=== PATIENT | male | born 1960 | race Caucasian/White ===

== ENCOUNTER 2018-09-02 00:40 | Emergency (ER) | payer SELFPAY ==
[2018-09-02] MEDS ORDERED: NORMAL SALINE 1000 ML 1,000 ML IV ONE (01:23)
[2018-09-02] MEDS ORDERED: ONDANSETRON HCL INJ/PF 4 MG/2 ML SDV IV ONE (01:23)
[2018-09-02] MEDS ORDERED: MORPHINE SULFATE 10 MG/ML INJ IV ONE (01:23)
--- NOTE | 2018-09-02 01:31 | ER Document Report ---
ED General - General Chief Complaint: Abdominal Pain Stated Complaint: VOMITTING, ADBOMINAL PAIN Time Seen by Provider: 09/02/18 01:18 Primary Care Provider: ELKIN ALEXANDER MD [ACTIVE STAFF] - Follow up as needed Notes: Patient is a 58-year-old male presents with complaint of lower abdominal pain with some vomiting. There is been vomiting for last to 3 days and then today start having abdominal pain. No diarrhea. No blood in stool. No fevers. Has had some subjective chills at home. He does previous history of diverticulitis but has not had any issues last few years. In 2014 he had a left inguinal hernia repair with mesh placement performed here. No other complaints at this time. TRAVEL OUTSIDE OF THE [place] IN LAST 30 DAYS: No - Related Data Allergies/Adverse Reactions: No Known Allergies Allergy (Verified 02/12/14 11:26) Past Medical History - Social History Smoking Status: Never Smoker Frequency of alcohol use: None Drug Abuse: None Family History: None - Past Medical History Cardiac Medical History: Denies: Hx Coronary Artery Disease, Hx Heart Attack, Hx Hypertension Pulmonary Medical History: Denies: Hx Asthma, Hx Bronchitis, Hx COPD, Hx Pneumonia Neurological Medical History: Denies: Hx Cerebrovascular Accident, Hx Seizures GI Medical History: Reports: Hx Diverticulitis Musculoskeletal Medical History: Denies Hx Arthritis Past Surgical History: Reports: Hx Inguinal Hernia - Immunizations Hx Diphtheria, Pertussis, Tetanus Vaccination: No Review of Systems - Review of Systems Notes: My Normal Review Basic REVIEW OF SYSTEMS: CONSTITUTIONAL : Chills CARDIOVASCULAR: Denies chest pain. RESPIRATORY: Denies cough, cold, or chest congestion. Denies shortness of breath, difficulty breathing, or wheezing. GASTROINTESTINAL: Lower abdominal pain. Vomiting. GENITOURINARY: Denies difficulty urinating, painful urination, burning, frequency, or blood in urine. MUSCULOSKELETAL: Denies neck or back pain or joint pain or swelling. SKIN: Denies rash or skin lesions. NEUROLOGICAL: Denies altered mental status or loss of consciousness. Denies headache. Denies weakness or paralysis or loss of use of either side. Denies problems with gait or speech. Denies sensory or motor loss. ALL OTHER SYSTEMS REVIEWED AND NEGATIVE. Physical Exam - Vital signs Vitals: Temp Pulse Resp BP Pulse Ox 98.1 F 93 20 140/78 H 97 09/02/18 00:50 09/02/18 00:50 09/02/18 00:50 09/02/18 00:50 09/02/18 00:50 - Notes Notes: General Appearance: Well nourished, alert, cooperative, no acute distress, moderate obvious discomfort. Vitals: reviewed, See vital signs table. Head: no swelling or tenderness to the head Eyes: PERRL, EOMI, Conjuctiva clear Mouth: No decreasd moisture Lungs: No wheezing, No rales, No rhonci, No accessory muscle use, good air exchange bilaterally. Heart: Normal rate, Regular rythm, No murmur, no rub Abdomen: Normal BS, soft, No rigidity, moderate lower abdominal tenderness to palpation., No guarding, no rebound, no abdominal masses, no organomegaly. No bulging or evidence of recurrent hernia in the inguinal area. Extremities: strength 5/5 in all extremities, good pulses in all extremities, no swelling or tenderness in the extremities, no edema. Skin: warm, dry, appropriate color, no rash Neuro: speech clear, oriented x 3, normal affect, responds appropriately to questions. Course - Re-evaluation Re-evalutation: 09/02/18 02:57 On reevaluation patient is feeling improved regards to his pain and nausea. Waiting for patient to finish drinking oral contrast so that we can obtain CT scan. 09/02/18 05:12 CT scan shows colitis. I will place the patient on Augmentin due to his p revious history of recurrent diverticulitis as well as previous history of bowel abscess. I we will have him follow back up with his GI physician at [facility]. I encouraged him return to ER immediately if he has fevers, recurrent vomiting, worsening abdominal pain, blood in stool, or if he feels that he is worsening in any way. Patient agrees with plan and will be discharged home. Dictation of this chart was performed using voice recognition software; therefore, there may be some unintended grammatical errors. - Vital Signs Vital signs: Temp Pulse Resp BP Pulse Ox 98.1 F 93 20 140/78 H 97 09/02/18 00:50 09/02/18 00:50 09/02/18 00:50 09/02/18 00:50 09/02/18 00:50 - Laboratory Result Diagrams: 09/02/18 01:34 09/02/18 02:19 Laboratory results interpreted by me: 09/02/18 09/02/18 09/02/18 01:34 02:19 04:43 WBC 13.3 H RBC 4.30 L Seg Neutrophils % 89.9 H Lymphocytes % 6.1 L Absolute Neutrophils 11.9 H Glucose 118 H AST 13 L Urine Ketones 80 H Discharge - Discharge Clinical Impression: Colitis Condition: Good Disposition: HOME, SELF-CARE Additional Instructions: Your CT scan shows colitis. Based on your previous history of recurrent diverticulitis as well as bowel abscess I fell it is appropriate to place you on antibiotics at this time. We will start you on Augmentin. Please take it as prescribed. Please follow-up closely with your GI doctor in the next 3-4 days. Have a low threshold to return to the ER if you have fevers, blood in your stool, intractable vomiting, or worsening abdominal pain. Prescriptions: Amox Tr/Potassium Clavulanate [Augmentin 875-125 Tablet] 1 tab PO BID #14 tablet Ondansetron [Zofran Odt 4 mg Tablet] 1 tab PO Q4H PRN #15 tab.rapdis PRN Reason: For Nausea/Vomiting Forms: Return to Work
[2018-09-02 01:43] LABS: ABSOLUTE LYMPHOCYTES (AUTO) 0.8 10^3/uL (0.5-4.7); ABSOLUTE MONOCYTES (AUTO) 0.5 10^3/uL (0.1-1.4); ABSOLUTE NEUT (AUTO) 11.9 10^3/uL (1.7-8.2); BASOPHILS % (AUTO) 0.2 % (0-2); EOSINOPHILS % (AUTO) 0.2 % (0-6); HEMATOCRIT 39.8 % (37.9-51.0); HEMOGLOBIN 13.5 g/dL (13.5-17.0); LYMPHOCYTES % (AUTO) 6.1 % (13-45); MEAN CORPUSCULAR HEMOGLOBIN 31.4 pg (27.0-33.4); MEAN CORPUSCULAR VOLUME 93 fl (80-97); MONOCYTES % (AUTO) 3.6 % (3-13); PLATELET COUNT 404 10^3/uL (150-450); RED CELL DISTRIBUTION WIDTH 13.4 % (11.5-14.0); SEGMENTED NEUTROPHILS % (AUTO) 89.9 % (42-78); TOTAL CELLS COUNTED % (AUTO) 100 %; WHITE BLOOD COUNT 13.3 10^3/uL (4.0-10.5)
[2018-09-02 02:44] LABS: ALANINE AMINOTRANSFERASE 27 U/L (21-72); ALKALINE PHOSPHATASE 89 U/L (38-126); ANION GAP 9 (5-19); ASPARTATE AMINO TRANSFERASE 13 U/L (17-59); BILIRUBIN,DIRECT 0.3 mg/dL (0.0-0.4); BILIRUBIN,TOTAL 0.3 mg/dL (0.2-1.3); BLOOD UREA NITROGEN 17 mg/dL (7-20); CALCIUM 8.9 mg/dL (8.4-10.2); CARBON DIOXIDE 24 mmol/L (22-30); CHLORIDE 106 mmol/L (98-107); GLUCOSE 118 mg/dL (75-110); POTASSIUM 4.7 mmol/L (3.6-5.0); SODIUM 139.2 mmol/L (137-145); TOTAL PROTEIN 6.7 g/dL (6.3-8.2)
[2018-09-02 05:02] LABS: APPEARANCE,URINE CLEAR; BILIRUBIN,URINE NEGATIVE (NEGATIVE); COLOR,URINE YELLOW; GLUCOSE, URINE NEGATIVE (NEGATIVE); KETONES,URINE 80 mg/dL (NEGATIVE); LEUKOCYTE ESTERASE,URINE NEGATIVE (NEGATIVE); NITRITE,URINE NEGATIVE (NEGATIVE); PROTEIN,URINE NEGATIVE (NEGATIVE); URINE SPECIFIC GRAVITY 1.044; UROBILINOGEN,URINE NEGATIVE mg/dL (<2.0)
--- NOTE | 2018-09-02 05:02 | RADIOLOGY REPORT (SQ) ---
EXAM DESCRIPTION: CT ABDOMEN PELVIS WITH IV CONTRAST COMPLETED DATE/TME: 09/02/2018 00:00 CLINICAL HISTORY: 58 years, Male, lower abdominal pain COMPARISON: 02/12/2014 TECHNIQUE: Axial CT images of the abdomen and pelvis were obtained of the the administration of IV contrast. Sagittal and coronal reformats were performed. DLP 475 Images stored on PACS. All CT scanners at this facility use dose modulation, iterative reconstruction, and/or weight based dosing when appropriate to reduce radiation dose to as low as reasonably achievable (ALARA). [facility]: Dose Right [facility]: CareDose [facility]: Dose Right [facility]: Teradose 4D [facility]: Seedcamp LIMITATIONS: None. FINDINGS: Lung bases are clear. The liver, gallbladder, pancreas, spleen, and adrenal glands are unremarkable. There is no evidence of hydronephrosis or hydroureter bilaterally. Noted is a left parapelvic cyst. There is no intraperitoneal free air or fluid. There is no lymphadenopathy. There are atherosclerotic calcifications of the abdominal aorta. There is no intraperitoneal free air or fluid. There is no lymphadenopathy. The stomach and small bowel appear unremarkable. The appendix is not uniquely identified, however there are no pericecal inflammatory changes. There is a moderate amount of stool within the colon. There is circumferential thickening of the sigmoid colon. Urinary bladder and prostate gland are unremarkable. There are no lytic or blastic bone lesions. IMPRESSION: Circumferential thickening of the sigmoid colon, likely due to colitis. TECHNICAL DOCUMENTATION: Quality ID # [id number]: Final reports with documentation of one or more dose reduction techniques (e.g., Automated exposure control, adjustment of the mA and/or kV according to patient size, use of iterative reconstruction technique) copyright 2011 [employer]- All Rights Reserved
[2018-09-02] MEDS ORDERED: AMOXICILLIN TR/POT CLAVULANATE 500-125 MG TAB PO ONE (05:10)
[2018-09-02] MEDS ORDERED: ONDANSETRON ODT 4 MG TAB (6 TAB/ER DISP) PO PRN (05:12)
[2018-09-02 05:31] VITALS: BP 128/64
== END 2018-09-02 05:31 | disposition home or self-care (01) ==
LOC: ER 00:40
DX: K52.9 Noninfective gastroenteritis and colitis, unspecified (principal); R10.30 Lower abdominal pain, unspecified; R11.10 Vomiting, unspecified; R68.83 Chills (without fever)
CPT/HCPCS: 99284; 96361; 96374; 96375; 36415; 85025; 80053; 81001; 74177; J2270; J2405; J7030

== ENCOUNTER 2018-09-14 13:08 | Emergency (ER) | payer SELFPAY ==
[2018-09-14] MEDS ORDERED: MORPHINE SULFATE 10 MG/ML INJ IV ONE (14:14)
[2018-09-14] MEDS ORDERED: NORMAL SALINE 1000 ML 1,000 ML IV ONE (14:15)
--- NOTE | 2018-09-14 14:16 | ER Document Report ---
ED Medical Screen (RME) - General Chief Complaint: Abdominal Pain Stated Complaint: ABDOMINAL PAIN Time Seen by Provider: 09/14/18 14:11 TRAVEL OUTSIDE OF THE [place] IN LAST 30 DAYS: No - HPI Notes: 09/14/18 14:15 Patient is a 58-year-old male with a history of colitis and diverticulosis/diverticulitis who presents complaining of generalized abdominal pain that started in his upper now moved to his lower bilaterally. Patient states that he was here 2 weeks ago with similar symptoms and was diagnosed with colitis. He was placed on Augmentin at that time. Patient states that his follow-up appointment is not until Monday with his family doctor. Patient states that the pain has flared up again starting a few days ago. Denies drug allergies. He has had decreased p.o. intake. He is urinating normally. Patient states that his bowel movements are more "mucousy." Denies MAN, fever, neck pain, URI, CP, SOB, dysuria, back pain, or rash. I have treated and performed a rapid initial assessment of this patient. A comprehensive ED assessment and evaluation of the patient, analysis of test results and completion of medical decision making process will be conducted by additional ED providers. PHYSICAL EXAMINATION: GENERAL: appears frail, no acute distress. LUNGS: Breath sounds clear to auscultation bilaterally and equal. No wheezes rales or rhonchi. HEART: Regular rate and rhythm without murmurs, rubs, gallops. ABDOMEN: Soft, nondistended abdomen. No guarding, no rebound. Normal bowel sounds present. No CVA tenderness bilaterally. + generalized tenderness (cannot elicit thorough abd exam w/o bed, however). - Related Data Allergies/Adverse Reactions: No Known Allergies Allergy (Verified 09/14/18 13:09) Past Medical History - Past Medical History Cardiac Medical History: Denies: Hx Coronary Artery Disease, Hx Heart Attack, Hx Hypertension Pulmonary Medical History: Denies: Hx Asthma, Hx Bronchitis, Hx COPD, Hx Pneumonia Neurological Medical History: Denies: Hx Cerebrovascular Accident, Hx Seizures Renal/ Medical History: Denies: Hx Peritoneal Dialysis GI Medical History: Reports: Hx Diverticulitis Musculoskeltal Medical History: Denies Hx Arthritis Past Surgical History: Reports: Hx Inguinal Hernia - Immunizations Hx Diphtheria, Pertussis, Tetanus Vaccination: No Physical Exam - Vital signs Vitals: Temp Pulse Resp BP Pulse Ox 98.1 F 63 16 130/67 H 97 09/14/18 13:25 09/14/18 13:25 09/14/18 13:25 09/14/18 13:25 09/14/18 13:25 Course - Vital Signs Vital signs: Temp Pulse Resp BP Pulse Ox 98.1 F 63 16 130/67 H 97 09/14/18 13:25 09/14/18 13:25 09/14/18 13:25 09/14/18 13:25 09/14/18 13:25
--- NOTE | 2018-09-14 14:59 | RADIOLOGY REPORT (SQ) ---
EXAM DESCRIPTION: KUB/ABDOMEN (SINGLE VIEW) COMPLETED DATE/TIME: 09/14/2018 2:48 pm REASON FOR STUDY: abd pain COMPARISON: CT abdomen pelvis 09/02/2018, 02/12/2014 Three-way abdomen series 02/12/2014 NUMBER OF VIEWS: One view. TECHNIQUE: Supine radiographic image of the abdomen acquired. LIMITATIONS: None. FINDINGS: BOWEL GAS PATTERN: Nonspecific bowel gas pattern with air in nondistended small bowel, sto mach and colon CALCIFICATIONS: No suspicious calcifications. SOFT TISSUES: No gross mass or suggestion of organomegaly. HARDWARE: None in the abdomen. BONES: No acute fracture. No worrisome bone lesions. OTHER: No other significant finding. IMPRESSION: Nonspecific bowel gas pattern TECHNICAL DOCUMENTATION: JOB ID: [id number] [employer]- All Rights Reserved Reading location - IP/workstation name: [email or web address]
[2018-09-14 15:22] LABS: ABSOLUTE BASOPHILS # (AUTO) 0.1 10^3/uL (0.0-0.2); ABSOLUTE EOSINOPHILS # (AUTO) 0.1 10^3/uL (0.0-0.6); ABSOLUTE MONOCYTES (AUTO) 0.9 10^3/uL (0.1-1.4); ABSOLUTE NEUT (AUTO) 10.8 10^3/uL (1.7-8.2); BASOPHILS % (AUTO) 0.5 % (0-2); EOSINOPHILS % (AUTO) 0.9 % (0-6); HEMOGLOBIN 14.5 g/dL (13.5-17.0); LYMPHOCYTES % (AUTO) 14.1 % (13-45); MEAN CORPUSCULAR HEMOGLOBIN 31.5 pg (27.0-33.4); MEAN CORPUSCULAR HGB CONC 34.4 g/dL (32.0-36.0); MEAN CORPUSCULAR VOLUME 92 fl (80-97); MONOCYTES % (AUTO) 6.2 % (3-13); PLATELET COUNT 483 10^3/uL (150-450); RED BLOOD COUNT 4.59 10^6/uL (4.35-5.55); RED CELL DISTRIBUTION WIDTH 13.2 % (11.5-14.0); SEGMENTED NEUTROPHILS % (AUTO) 78.3 % (42-78); TOTAL CELLS COUNTED % (AUTO) 100 %; WHITE BLOOD COUNT 13.8 10^3/uL (4.0-10.5)
[2018-09-14 15:23] LABS: APPEARANCE,URINE CLEAR; BILIRUBIN,URINE NEGATIVE (NEGATIVE); COLOR,URINE YELLOW; GLUCOSE, URINE NEGATIVE (NEGATIVE); KETONES,URINE 20 mg/dL (NEGATIVE); LEUKOCYTE ESTERASE,URINE NEGATIVE (NEGATIVE); NITRITE,URINE NEGATIVE (NEGATIVE); PROTEIN,URINE NEGATIVE (NEGATIVE); URINE SPECIFIC GRAVITY 1.019
[2018-09-14 15:38] LABS: ALBUMIN 4.1 g/dL (3.5-5.0); ALKALINE PHOSPHATASE 102 U/L (38-126); ANION GAP 8 (5-19); ASPARTATE AMINO TRANSFERASE 14 U/L (17-59); BILIRUBIN,DIRECT 0.2 mg/dL (0.0-0.4); BILIRUBIN,TOTAL 0.3 mg/dL (0.2-1.3); BLOOD UREA NITROGEN 9 mg/dL (7-20); CALCIUM 9.5 mg/dL (8.4-10.2); CARBON DIOXIDE 28 mmol/L (22-30); CHLORIDE 103 mmol/L (98-107); GLUCOSE 101 mg/dL (75-110); POTASSIUM 4.3 mmol/L (3.6-5.0)
--- NOTE | 2018-09-14 16:40 | ER Document Report ---
ED General - General Chief Complaint: Abdominal Pain Stated Complaint: ABDOMINAL PAIN Time Seen by Provider: 09/14/18 14:11 Primary Care Provider: MARSHA TOLENTINO FNP [Primary Care Provider] - 09/18/18 Mode of Arrival: Ambulatory Information source: Patient, [facility] Records Notes: Patient is a 58-year-old male with a history of colitis and diverticulosis/diverticulitis who presents complaining of generalized abdominal pain that started in his upper now moved to his lower bilaterally. Patient states that he was here 2 weeks ago with similar symptoms and was diagnosed with colitis. He was placed on Augmentin at that time. Patient states that his follow-up appointment is not until Monday with his family doctor. Patient states that the pain has flared up again starting a few days ago. States it is much less pain that he was experiencing. Patient states that he also has had constipation for about a week but states he had a bowel movement this morning. Patient is having flatus. He does admit to not eating today. He denies any black or bloody stools. Patient admits that he is here because he needs a doctor's note for work. Patient states that he is just unable to keep up at work. He states that he is not being helpful to his team. Denies drug allergies. He has had decreased p.o. intake. He is urinating normally. Denies MAN, fever, neck pain, URI, CP, SOB, dysuria, back pain, or rash. TRAVEL OUTSIDE OF THE [place] IN LAST 30 DAYS: No - HPI Onset: Other Onset/Duration: Gradual, Intermittent Quality of pain: Achy Severity: Mild Associated symptoms: denies: Chest pain, Nonproductive cough, Productive cough, Diarrhea, Fever, Nausea, Vomiting, Shortness of breath Exacerbated by: Denies Relieved by: Denies Similar symptoms previously: Yes Recently seen / treated by doctor: Yes - Related Data Allergies/Adverse Reactions: No Known Allergies Allergy (Verified 09/14/18 13:09) Past Medical History - General Information source: Patient - Social History Smoking Status: Current Every Day Smoker Cigarette use (# per day): Yes - 5 Smoking Education Provided: Yes - Smoking cessation counseling was provided for 4 minutes at the bedside Frequency of alcohol use: Occasional Drug Abuse: None Lives with: Spouse/Significant other Family History: None Patient has suicidal ideation: No Patient has homicidal ideation: No - Past Medical History Cardiac Medical History: Denies: Hx Coronary Artery Disease, Hx Heart Attack, Hx Hypertension Pulmonary Medical History: Denies: Hx Asthma, Hx Bronchitis, Hx COPD, Hx Pneumonia Neurological Medical History: Denies: Hx Cerebrovascular Accident, Hx Seizures Renal/ Medical History: Denies: Hx Peritoneal Dialysis GI Medical History: Reports: Hx Diverticulitis Musculoskeletal Medical History: Denies Hx Arthritis Past Surgical History: Reports: Hx Inguinal Hernia - Immunizations Hx Diphtheria, Pertussis, Tetanus Vaccination: No Review of Systems - Review of Systems Notes: REVIEW OF SYSTEMS: CONSTITUTIONAL : Denies fever, chills, or sweats. Denies recent illness. + weight loss, denies recent hospitalizations. EENT: Denies visual changes, eye pain. Denies sore throat, oral lesions, difficulty swallowing. CARDIOVASCULAR: Denies chest pain. Denies palpitations. Denies lower extremity edema. RESPIRATORY: Denies cough. Denies shortness of breath, wheezing. GASTROINTESTINAL: Denies abdominal distention. Denies nausea, vomiting, or diarrhea. Denies blood in vomitus, stools, or per rectum. Denies black, tarry stools. + constipation. GENITOURINARY: Denies difficulty urinating, painful urination, frequency, blood in urine, testicular pain or penile discharge. MUSCULOSKELETAL: Denies back or neck pain or stiffness. Denies joint pain or swelling. SKIN: Denies rash, lesions or sores. HEMATOLOGIC : Denies easy bruising or bleeding. LYMPHATIC: Denies swollen glands. NEUROLOGICAL: Denies confusion or altered mental status. Denies loss of consciousness. Denies dizziness or lightheadedness. Denies headache. Denies weakness or paralysis. Denies problems difficulty with ambulation, slurred speech. Denies sensory loss, numbness, or tingling. Denies seizures. PSYCHIATRIC: Denies anxiety or stress. Denies depression, suicidal ideation, or Physical Exam - Vital signs Vitals: Temp Pulse Resp BP Pulse Ox 98.1 F 63 16 130/67 H 97 09/14/18 13:25 09/14/18 13:25 09/14/18 13:25 09/14/18 13:25 09/14/18 13:25 - Notes Notes: PHYSICAL EXAMINATION: GENERAL: Well-appearing, well-nourished and in no acute distress. HEAD: Atraumatic, normocephalic. EYES: Pupils equal round and reactive to light, extraocular movements intact, sclera anicteric, conjunctiva are normal. ENT: Nares patent, oropharynx clear without exudates. Moist mucous membranes. NECK: Normal range of motion, supple without lymphadenopathy LUNGS: Breath sounds clear to auscultation bilaterally and equal. No wheezes rales or rhonchi. HEART: Regular rate and rhythm without murmurs ABDOMEN: Soft, nontender, nondistended abdomen. No guarding, no rebound. No masses appreciated. Musculoskeletal: Normal range of motion, no pitting or edema. No cyanosis. NEUROLOGICAL: Cranial nerves grossly intact. Normal speech, normal gait. Normal sensory, motor exams PSYCH: Normal mood, normal affect. SKIN: Warm, Dry, normal turgor, no rashes or lesions noted. Course - Re-evaluation Re-evalutation: 09/14/18 16:42 Laboratory 09/14/18 09/14/18 09/14/18 15:06 15:06 15:06 WBC 13.8 H RBC 4.59 Hgb 14.5 Hct 42.0 MCV 92 MCH 31.5 MCHC 34.4 RDW 13.2 Plt Count 483 H Seg Neutrophils % 78.3 H Lymphocytes % 14.1 Monocytes % 6.2 Eosinophils % 0.9 Basophils % 0.5 Absolute Neutrophils 10.8 H Absolute Lymphocytes 2.0 Absolute Monocytes 0.9 Absolute Eosinophils 0.1 Absolute Basophils 0.1 Sodium 138.9 Potassium 4.3 Chloride 103 Carbon Dioxide 28 Anion Gap 8 BUN 9 Creatinine 0.62 Est GFR ( Amer) > 60 Est GFR (Non-Af Amer) > 60 Glucose 101 Calcium 9.5 Total Bilirubin 0.3 Direct Bilirubin 0.2 Neonat Total Bilirubin Not Reportable Neonat Direct Bilirubin Not Reportable Neonat Indirect Bili Not Reportable AST 14 L ALT 14 Alkaline Phosphatase 102 Total Protein 7.0 Albumin 4.1 Lipase 197.6 Urine Color YELLOW Urine Appearance CLEAR Urine pH 5.0 Ur Specific Viola 1.019 Urine Protein NEGATIVE Urine Glucose (UA) NEGATIVE Urine Ketones 20 H Urine Blood SMALL H Urine Nitrite NEGATIVE Urine Bilirubin NEGATIVE Urine Urobilinogen 2.0 H Ur Leukocyte Esterase NEGATIVE Urine WBC (Auto) 1 Urine RBC (Auto) 1 Urine Mucus (Auto) MOD Urine Ascorbic Acid NEGATIVE KUB X-Ray 09/14/18 14:14 IMPRESSION: Nonspecific bowel gas pattern Temp Pulse Resp BP Pulse Ox 98.1 F 63 16 130/67 H 97 09/14/18 13:25 09/14/18 13:25 09/14/18 13:25 09/14/18 13:25 09/14/18 13:25 58-year-old male presents with vague generalized abdominal pain. Vital signs reviewed and within normal limits. Patient is afebrile, normotensive and does not appear toxic or dehydrated. Patient is in no acute distress. Previous medical records and nursing notes reviewed including his recent visits on September 01, 2018. At that time patient had a CAT scan which showed colitis. He was prescribed Augmentin which he completed. He states the pain had improved until a few days ago when he started experiencing some vague generalized abdominal cramping. He has not had any vomiting, fever, chills. He has been constipated but reports a bowel movement today. Patient has had poor p.o. intake. CBC today does show a mild leukocytosis which is unchanged from previous visit. CMP, liver enzymes and lipase are within normal limits. Urinalysis is not consistent with infection. Patient states that he is here for a work note because he feels he cannot keep up with work at this time. He does have an upcoming appointment with his primary care physician. Discussed treatments for his constipation and patient states that he has MiraLAX at home which he would like to try. Patient was evaluated and treated as appropriate for the patient's presenting symptoms and complaint, with consideration of any critical or life threatening conditions that may be associated with their obtained history and exam as noted above. All results were discussed with patient and his family members were at the bedside. Patient provided the opportunity to ask questions, and express concerns. Patient was educated on treatments based on their presumed diagnosis as noted above. At this time we will discharge the patient with return precautions and follow-up recommendations. Verbal discharge instructions given a the bedside. Medication warnings reviewed. Patient is in agreement with this plan and has verbalized understanding of return precautions. After careful consideration I feel that that patient can be safely discharged from the emergency department, they were advised to followup with a primary care physician in 2-3 days. Dictation on this chart was performed using voice recognition software and may result in unintended grammatical, spelling, syntax or errors. - Vital Signs Vital signs: Temp Pulse Resp BP Pulse Ox 98.1 F 67 20 126/64 H 100 09/14/18 17:06 09/14/18 17:06 09/14/18 17:06 09/14/18 17:06 09/14/18 17:06 - Laboratory Result Diagrams: 09/14/18 15:06 09/14/18 15:06 Laboratory results interpreted by me: 09/14/18 09/14/18 09/14/18 15:06 15:06 15:06 WBC 13.8 H Plt Count 483 H Seg Neutrophils % 78.3 H Absolute Neutrophils 10.8 H AST 14 L Urine Ketones 20 H Urine Blood SMALL H Urine Urobilinogen 2.0 H - Diagnostic Test Radiology reviewed: Image reviewed, Reports reviewed Discharge - Discharge Clinical Impression: Malaise, Weight loss Abdominal pain Qualifiers: Abdominal location: unspecified location Qualified Code(s): R10.9 - Unspecified abdominal pain Constipation Qualifiers: Constipation type: unspecified constipation type Qualified Code(s): K59.00 - Constipation, unspecified Condition: Good Disposition: HOME, SELF-CARE Instructions: Abdominal Pain ([facility]), Constipation ([facility]), Weakness ([facility]) Additional Instructions: Follow up with your [id number] hours for further care or return to the ED IMMEDIATELY if symptoms worsen or you have any concerns. If you cannot afford to follow up with your primary care physician a list of low cost clinics have been provided at the end of your discharge papers as well. Most prescribed medications have multiple side effects. The safest thing to do is when filling your prescription speak to your pharmacist regarding possible interactions with your normal home medications and over the counter medications such as Ibuprofen, Tylenol, Benadryl. If you experience any symptoms that cause you discomfort or concern you should discontinue the medication immediately and return to the emergency room or call your primary care physician. Forms: Return to Work Referrals: MARSHA TOLENTINO FNP [Primary Care Provider] - 09/18/18
[2018-09-14] MEDS ORDERED: METOCLOPRAMIDE HCL ORAL SOLN 10 MG/10 ML UDCUP PO ONE (16:45)
[2018-09-14] MEDS ORDERED: MAG HYDROX/AL HYDROX/SIMETH SUSP 30 ML UDCUP PO ONE (16:45)
[2018-09-14] MEDS ORDERED: LIDOCAINE 2% VISCOUS SOLN 20 ML UDCUP PO ONE (16:45)
[2018-09-14 17:11] VITALS: BP 126/64
== END 2018-09-14 17:22 | disposition home or self-care (01) ==
LOC: ER 13:08
DX: K59.00 Constipation, unspecified (principal); R53.81 Other malaise; R63.4 Abnormal weight loss; R10.9 Unspecified abdominal pain; R10.84 Generalized abdominal pain; R14.3 Flatulence; R63.0 Anorexia
CPT/HCPCS: 99284; 96361; 96374; 36415; 83690; 85025; 80053; 81001; 74018; J3490; J2270; J7030

== ENCOUNTER 2018-10-23 16:27 | Inpatient (IN) | payer SELFPAY ==
[2018-10-23] MEDS ORDERED: ACETAMINOPHEN 325 MG TABLET PO ONE (17:33)
--- NOTE | 2018-10-23 17:39 | ER Document Report ---
ED Medical Screen (RME) - General Chief Complaint: Fever Stated Complaint: FEVER Time Seen by Provider: 10/23/18 17:23 Primary Care Provider: MARSHA TOLENTINO FNP [Primary Care Provider] - Follow up as needed Notes: Otherwise healthy 58-year-old male with recent history of colitis diagnosed on 09/02/2018 presents to the emergency department with chief complaint of fever, abdominal pain, sharp stinging pain in the urethra when he tries to use the bathroom. Patient states that he was seen his primary care today for general malaise and was referred to the emergency department for concern of a potential ?urogenital fistula. Patient had a T-max of 1 1 in the doctor's office but is currently afebrile and 9.3 here, complains of chills, denies any acute shortness of breath or chest pain, denies any nausea or vomiting, does complain of abdominal pain. No other complaints EXAM: Well-appearing well-nourished in no acute distress. Regular cardiac rate and rhythm rate of 96, clear to auscultation in all jimenes. Abdominal exam deferred in triage room. I have greeted and performed a rapid initial assessment of this patient. A comprehensive ED assessment and evaluation of the patient, analysis of test resu lts and completion of medical decision making process will be conducted by an additional ED providers. TRAVEL OUTSIDE OF THE [place] IN LAST 30 DAYS: No - Related Data Allergies/Adverse Reactions: No Known Allergies Allergy (Verified 10/23/18 16:29) Past Medical History - Social History Chew tobacco use (# tins/day): No Frequency of alcohol use: None Drug Abuse: None - Past Medical History Cardiac Medical History: Denies: Hx Coronary Artery Disease, Hx Heart Attack, Hx Hypertension Pulmonary Medical History: Denies: Hx Asthma, Hx Bronchitis, Hx COPD, Hx Pneumonia Neurological Medical History: Denies: Hx Cerebrovascular Accident, Hx Seizures Renal/ Medical History: Denies: Hx Peritoneal Dialysis GI Medical History: Reports: Hx Diverticulitis Musculoskeltal Medical History: Denies Hx Arthritis Past Surgical History: Reports: Hx Inguinal Hernia - Immunizations Hx Diphtheria, Pertussis, Tetanus Vaccination: No Physical Exam - Vital signs Vitals: Temp Pulse Resp BP Pulse Ox 99.7 F 93 17 123/67 94 10/23/18 16:41 10/23/18 16:41 10/23/18 16:41 10/23/18 16:41 10/23/18 16:41 Course - Vital Signs Vital signs: Temp Pulse Resp BP Pulse Ox 99.5 F 93 17 123/67 94 10/23/18 17:31 10/23/18 16:41 10/23/18 16:41 10/23/18 16:41 10/23/18 16:41 Doctor's Discharge - Discharge Referrals: MARSHA TOLENTINO FNP [Primary Care Provider] - Follow up as needed
[2018-10-23 18:36] LABS: HEMATOCRIT 41.7 % (37.9-51.0); HEMOGLOBIN 14.4 g/dL (13.5-17.0); MEAN CORPUSCULAR HEMOGLOBIN 31.4 pg (27.0-33.4); MEAN CORPUSCULAR HGB CONC 34.5 g/dL (32.0-36.0); MEAN CORPUSCULAR VOLUME 91 fl (80-97); PLATELET COUNT 388 10^3/uL (150-450); RED BLOOD COUNT 4.59 10^6/uL (4.35-5.55); RED CELL DISTRIBUTION WIDTH 13.7 % (11.5-14.0); WHITE BLOOD COUNT 22.2 10^3/uL (4.0-10.5)
[2018-10-23] MEDS ORDERED: NORMAL SALINE 1000 ML 1,000 ML IV ONE ×2 (18:43→21:35)
[2018-10-23 18:50] LABS: ALBUMIN 4.4 g/dL (3.5-5.0); ALKALINE PHOSPHATASE 112 U/L (38-126); ANION GAP 11 (5-19); ASPARTATE AMINO TRANSFERASE 15 U/L (17-59); BILIRUBIN,DIRECT 0.2 mg/dL (0.0-0.4); BILIRUBIN,TOTAL 0.3 mg/dL (0.2-1.3); BLOOD UREA NITROGEN 9 mg/dL (7-20); CALCIUM 9.9 mg/dL (8.4-10.2); CARBON DIOXIDE 23 mmol/L (22-30); CHLORIDE 102 mmol/L (98-107); GLUCOSE 99 mg/dL (75-110); POTASSIUM 4.4 mmol/L (3.6-5.0); TOTAL PROTEIN 7.3 g/dL (6.3-8.2)
[2018-10-23 18:57] LABS: APPEARANCE,URINE SLIGHTLY-CLOUDY; BILIRUBIN,URINE NEGATIVE (NEGATIVE); COLOR,URINE YELLOW; GLUCOSE, URINE NEGATIVE (NEGATIVE); KETONES,URINE NEGATIVE (NEGATIVE); LEUKOCYTE ESTERASE,URINE LARGE (NEGATIVE); NITRITE,URINE NEGATIVE (NEGATIVE); PROTEIN,URINE NEGATIVE (NEGATIVE); URINE SPECIFIC GRAVITY 1.012; UROBILINOGEN,URINE NEGATIVE mg/dL (<2.0)
[2018-10-23 18:58] LABS: ABSOLUTE LYMPHOCYTES# (MANUAL) 1.6 10^3/uL (0.5-4.7); ABSOLUTE MONOCYTES # (MANUAL) 2.2 10^3/uL (0.1-1.4); BAND NEUTROPHILS % (MANUAL) 1 % (3-5); BASOPHILS % (MANUAL) 0 % (0-2); EOSINOPHILS % (MANUAL) 0 % (0-6); LYMPHOCYTES % (MANUAL) 7 % (13-45); MONOCYTES % (MANUAL) 10 % (3-13); PLATELET COMMENT ADEQUATE; RBC MORPHOLOGY COMMENT NORMO-CYTIC/CHROMIC; SEGMENTED NEUTROPHILS % (MAN) 82 % (42-78); TOTAL CELLS COUNTED 100
[2018-10-23] MEDS ORDERED: PIPERACILLIN/TAZOBACTAM 3.375 GM VIAL IV ONE (19:06)
--- NOTE | 2018-10-23 20:42 | ER Document Report ---
ED Fever - General Chief Complaint: Fever Stated Complaint: FEVER Time Seen by Provider: 10/23/18 17:23 Primary Care Provider: MARSHA TOLENTINO FNP [Primary Care Provider] - Follow up as needed Information source: Patient, Relative TRAVEL OUTSIDE OF THE [place] IN LAST 30 DAYS: No - HPI Notes: Patient is sent from primary care office. Patient had a recent diagnosis of proxy 1 month ago for colitis. Patient took Augmentin for approximately 1 week. He states after this he was no better so he then took Cipro and Flagyl and after about 5 days of this he felt significantly better. He states he then had a 2-week period of feeling normal. He states about 5 days ago he began to have pain in the abdomen once again and went back to his primary care physician today. The pain is bilateral lower quadrant. It is constant. It is worse with movement and better with rest. It is moderate in intensity. He is also had fevers and chills. He also feels that he has been constipated. He also states that sometimes he feels he has to urinate but only air comes out of his penis. He has had no vomiting. He has had a decreased appetite. The pain does radiate to his lower back. It is been a sharp and crampy sensation. - Related Data Allergies/Adverse Reactions: No Known Allergies Allergy (Verified 10/23/18 16:29) Past Medical History - General Information source: Patient - Social History Smoking Status: Never Smoker Chew tobacco use (# tins/day): No Frequency of alcohol use: None Drug Abuse: None Family History: None Patient has suicidal ideation: No Patient has homicidal ideation: No - Past Medical History Cardiac Medical History: Denies: Hx Coronary Artery Disease, Hx Heart Attack, Hx Hypertension Pulmonary Medical History: Denies: Hx Asthma, Hx Bronchitis, Hx COPD, Hx Pneumonia Neurological Medical History: Denies: Hx Cerebrovascular Accident, Hx Seizures Renal/ Medical History: Denies: Hx Peritoneal Dialysis GI Medical History: Reports: Hx Diverticulitis Musculoskeletal Medical History: Denies Hx Arthritis Past Surgical History: Reports: Hx Inguinal Hernia - Immunizations Hx Diphtheria, Pertussis, Tetanus Vaccination: No Review of Systems - Review of Systems Constitutional: Chills, Fever, Malaise Cardiovascular: denies: Chest pain, Dyspnea Respiratory: denies: Cough, Short of breath Gastrointestinal: Abdominal pain, Nausea, Constipation -: Yes All other systems reviewed and negative Physical Exam - Vital signs Vitals: Temp Pulse Resp BP Pulse Ox 99.7 F 93 17 123/67 94 10/23/18 16:41 10/23/18 16:41 10/23/18 16:41 10/23/18 16:41 10/23/18 16:41 Interpretation: Normal - General General appearance: Appears well, Alert - HEENT Head: Normocephalic, Atraumatic Eyes: Normal Pupils: PERRL - Respiratory Respiratory status: No respiratory distress Chest status: Nontender Breath sounds: Normal Chest palpation: Normal - Cardiovascular Rhythm: Regular Heart sounds: Normal auscultation Murmur: No - Abdominal Inspection: Normal Distension: No distension Bowel sounds: Hypoactive Tenderness: Tender - Abdomen has bilateral lower quadrant tenderness to palpation without rebound or guarding. Organomegaly: No organomegaly - Back Back: Normal, Nontender - Extremities General upper extremity: Normal inspection, Nontender, Normal color, Normal ROM, Normal temperature General lower extremity: Normal inspection, Nontender, Normal color, Normal ROM, Normal temperature, Normal weight bearing. No: Brook's sign - Neurological Neuro grossly intact: Yes Cognition: Normal Orientation: AAOx4 [place]ek[place] Coma Scale Eye Opening: Spontaneous [place] Coma Scale Verbal: Oriented [place] Coma Scale Motor: Obeys Commands [place] Coma Scale Total: 15 Speech: Normal Motor strength normal: LUE, RUE, LLE, RLE Sensory: Normal - Psychological Associated symptoms: Normal affect, Normal mood - Skin Skin Temperature: Warm Skin Moisture: Dry Skin Color: Normal Course - Re-evaluation Re-evalutation: 10/23/18 21:35 i signed pt out to Dr. Razo. He will follow up on CT and dispo - Vital Signs Vital signs: Temp Pulse Resp BP Pulse Ox 99.5 F 93 17 123/67 94 10/23/18 17:31 10/23/18 16:41 10/23/18 16:41 10/23/18 16:41 10/23/18 16:41 - Laboratory Result Diagrams: 10/23/18 17:46 10/23/18 17:46 Laboratory results interpreted by me: 10/23/18 10/23/18 10/23/18 17:46 17:46 17:46 WBC 22.2 H Seg Neuts % (Manual) 82 H Band Neutrophils % 1 L Lymphocytes % (Manual) 7 L Abs Neuts (Manual) 18.4 H Abs Monocytes (Manual) 2.2 H Sodium 136.3 L AST 15 L Urine Blood LARGE H Ur Leukocyte Esterase LARGE H - Diagnostic Test Radiology reviewed: Image reviewed, Reports reviewed Discharge - Discharge Clinical Impression: Abdominal pain Qualifiers: Abdominal location: lower abdomen, unspecified Qualified Code(s): R10.30 - Lower abdominal pain, unspecified Condition: Serious Disposition: Tertiary-Other Referrals: MARSHA TOLENTINO FNP [Primary Care Provider] - Follow up as needed
--- NOTE | 2018-10-23 21:32 | RADIOLOGY REPORT (SQ) ---
EXAM DESCRIPTION: CT ABDOMEN PELVIS WITH IV CONTRAST COMPLETED DATE/TME: 10/23/2018 17:31 CLINICAL HISTORY: 58 years, Male, abd pain COMPARISON: Prior study from 09/02/2018 TECHNIQUE: Contrast enhanced CT of the abdomen/pelvis was performed. Coronal and sagittal reformations were created. Images stored on PACS. All CT scanners at this facility use dose modulation, iterative reconstruction, and/or weight based dosing when appropriate to reduce radiation dose to as low as reasonably achievable (ALARA). [facility]: Dose Right [facility]: CareDose [facility]: Dose Right [facility]: Teradose 4D [facility]: [employer] LIMITATIONS: None. FINDINGS: Limited evaluation of the lower chest reveals a well-circumscribed solid nodule located within the right lower lobe measuring 0.7 cm in size. This is unchanged from 02/12/2014, and is considered benign. A similar-appearing solid nodule is noted within the periphery of the right lower lobe on image 14 of series 4, also unchanged from 02/12/2014 and also considered benign. Tiny hiatal hernia is noted. The liver, spleen, pancreas, gallbladder, and both adrenal glands appear normal. A simple cyst emanates from the upper pole of left kidney. There is mild left hydronephrosis though the left ureter does not appear significantly dilated. This appears fairly similar in configuration to the previous examination. The urinary bladder is well distended and shows no suspicious finding. Prostate gland is moderately enlarged. Visualized is a short segment of circumferential wall thickening involving the sigmoid colon with a few scattered diverticula. The degree of wall thickening is exquisite, with suspected luminal narrowing. Minimal, if any adjacent inflammatory changes are noted. Remainder of the small and large bowel appear normal in caliber without additional areas of focal wall thickening. No evidence of bowel obstruction. Appendix is normal. Calcifications are evident about the abdominal aorta and proximal iliac vessels. No suspicious lymphadenopathy or drainable fluid collections are appreciated. Bone windows show no destructive osseous lesions. IMPRESSION: Segment of circumferential wall thickening involving the sigmoid colon which appears persistent from the previous examination dated 09/02/2018 with suspected luminal narrowing though no evidence of significant obstruction. Differential considerations for this finding include muscular hypertrophy related to diverticulosis, an underlying infectious/inflammatory colitis, or malignancy. Correlation with direct visualization is recommended if not already recently performed, specifically once all signs and symptoms of acute disease have resolved. Prostatomegaly. Persistent mild left hydronephrosis. TECHNICAL DOCUMENTATION: Quality ID # [id number]: Final reports with documentation of one or more dose reduction techniques (e.g., Automated exposure control, adjustment of the mA and/or kV according to patient size, use of iterative reconstruction technique) copyright 2011 [employer]- All Rights Reserved
[2018-10-23] MEDS ORDERED: METRONIDAZOLE 500 MG/NS RTU 500 MG/100 ML RTUPB IV ONE (21:45)
[2018-10-23] MEDS ORDERED: MORPHINE SULFATE 10 MG/ML INJ IV ONE (23:06)
[2018-10-23] MEDS ORDERED: LIDOCAINE 2% URO-JET 5 ML KIT MM ONE (23:06)
--- NOTE | 2018-10-23 23:26 | PDOC H&P ---
History of Present Illness Admission Date/PCP: 10/23/18 22:22 DOMINIC HAWLEY Patient complains of: Abdominal pains,pains on his penis when voiding,fewver and chills History of Present Illness: ELKIN ADAMS is a 58 year old male who was initially diagnosed with sigmoid diverticulitis 09/02/18. Was seen in ED then and a CT scan showed diverticulitis. Had abdominal pains with constipation and dysuria. Given po antibiotics and discharged. Went back to his PMD after a week and given 2 po antibiotics with improvement of his symptoms only to come back 5 days ago. Went to his PMD today and noted to have a fever. Patient admits chills and pains to his urethra on voiding. He was then sent back to ED by his PMD. Had about 8 episodes of passing air while voiding in the past 3 weeks. Past Medical History Cardiac Medical History: Denies: Coronary Artery Disease, Myocardial Infarction, Hypertension Pulmonary Medical History: Denies: Asthma, Bronchitis, Chronic Obstructive Pulmonary Disease (COPD), Pneumonia Neurological Medical History: Denies: Seizures GI Medical History: Reports: Diverticulitis Musculoskeltal Medical History: Denies: Arthritis Hematology: Denies: Anemia Social History Smoking Status: Former Smoker Frequency of Alcohol Use: Rare Hx Recreational Drug Use: No Hx Prescription Drug Abuse: No Family History Family History: None Parental Family History Reviewed: Yes Children Family History Reviewed: No Sibling(s) Family History Reviewed.: No Medication/Allergy Home Medications: Amox Tr/Potassium Clavulanate [Augmentin 875-125 mg Tablet] 1 tab PO BID #20 tablet 02/17/14 Oxycodone HCl/Acetaminophen [Percocet 5-325 mg Tablet] 2 tab PO Q4HP PRN #14 tablet 02/17/14 Amox Tr/Potassium Clavulanate [Augmentin 875-125 Tablet] 1 tab PO BID #14 tablet 09/02/18 Ondansetron [Zofran Odt 4 mg Tablet] 1 tab PO Q4H PRN #15 tab.rapdis 09/02/18 Allergies/Adverse Reactions: No Known Allergies Allergy (Verified 10/23/18 16:29) Review of Systems Constitutional: PRESENT: as per HPI Nose, Mouth, and Throat: PRESENT: headache(s) Cardiovascular: PRESENT: other - no chest pains/cough Gastrointestinal: PRESENT: abdominal pain, nausea, vomiting Genitourinary: PRESENT: difficulty urinating Physical Exam Vital Signs: Temp Pulse Resp BP Pulse Ox 99.5 F 93 17 123/67 94 10/23/18 17:31 10/23/18 16:41 10/23/18 16:41 10/23/18 16:41 10/23/18 16:41 Intake & Output 10/22/18 10/23/18 10/24/18 06:59 06:59 06:59 Intake Total 1000 Balance 1000 Weight 53.7 kg General appearance: PRESENT: mild distress Head exam: PRESENT: atraumatic Eye exam: PRESENT: conjunctiva pink Mouth exam: PRESENT: moist Neck exam: PRESENT: full ROM Respiratory exam: PRESENT: clear to auscultation nicole Cardiovascular exam: PRESENT: RRR Pulses: PRESENT: normal radial pulses Vascular exam: PRESENT: normal capillary refill GI/Abdominal exam: PRESENT: soft, tenderness - LLQ Rectal exam: PRESENT: deferred Neurological exam: PRESENT: alert, oriented to person, oriented to place, oriented to time, oriented to situation Psychiatric exam: PRESENT: anxious Skin exam: PRESENT: normal color, warm Results Laboratory Results: 10/23/18 17:46 10/23/18 17:46 10/23/18 10/23/18 10/23/18 17:46 17:46 17:46 WBC 22.2 H RBC 4.59 Hgb 14.4 Hct 41.7 MCV 91 MCH 31.4 MCHC 34.5 RDW 13.7 Plt Count 388 Seg Neutrophils % Not Reportable Sodium 136.3 L Potassium 4.4 Chloride 102 Carbon Dioxide 23 Anion Gap 11 BUN 9 Creatinine 0.65 Est GFR ( Amer) > 60 Glucose 99 Calcium 9.9 Total Bilirubin 0.3 AST 15 L Alkaline Phosphatase 112 Total Protein 7.3 Albumin 4.4 Lipase Urine Color YELLOW Urine Appearance SLIGHTLY-CLOUDY Urine pH 5.0 Ur Specific [place] 1.012 Urine Protein NEGATIVE Urine Glucose (UA) NEGATIVE Urine Ketones NEGATIVE Urine Blood LARGE H Urine Nitrite NEGATIVE Ur Leukocyte Esterase LARGE H Urine WBC (Auto) 133 Urine RBC (Auto) 22 10/23/18 17:46 WBC RBC Hgb Hct MCV MCH MCHC RDW Plt Count Seg Neutrophils % Sodium Potassium Chloride Carbon Dioxide Anion Gap BUN Creatinine Est GFR ( Amer) Glucose Calcium Total Bilirubin AST Alkaline Phosphatase Total Protein Albumin Lipase 139.3 Urine Color Urine Appearance Urine pH Ur Specific [place] Urine Protein Urine Glucose (UA) Urine Ketones Urine Blood Urine Nitrite Ur Leukocyte Esterase Urine WBC (Auto) Urine RBC (Auto) Impressions: Abdomen/Pelvis CT 10/23/18 17:31 IMPRESSION: Segment of circumferential wall thickening involving the sigmoid colon which appears persistent from the previous examination dated 09/02/2018 with suspected luminal narrowing though no evidence of significant obstruction. Differential considerations for this finding include muscular hypertrophy related to diverticulosis, an underlying infectious/inflammatory colitis, or malignancy. Correlation with direct visualization is recommended if not already recently performed, specifically once all signs and symptoms of acute disease have resolved. Prostatomegaly. Persistent mild left hydronephrosis. TECHNICAL DOCUMENTATION: Quality ID # [id number]: Final reports with documentation of one or more dose reduction techniques (e.g., Automated exposure control, adjustment of the mA and/or kV according to patient size, use of iterative reconstruction technique) copyright 2011 [email or web address]- All Rights Reserved Assessment & Plan - Diagnosis (1) acute sigmoid diverticulitis Is this a current diagnosis for this admission?: Yes (2) Abdominal pain Qualifiers: Abdominal location: lower abdomen, unspecified Qualified Code(s): R10.30 - Lower abdominal pain, unspecified Is this a current diagnosis for this admission?: Yes (3) UTI (urinary tract infection) Is this a current diagnosis for this admission?: Yes - Time Time Spent: 30 to 50 Minutes - Inpatient Certification Based on my medical assessment, after consideration of the patient's comorbidities, presenting symptoms, or acuity I expect that the services needed warrant INPATIENT care.: Yes I certify that my determination is in accordance with my understanding of Medicare's requirements for reasonable and necessary INPATIENT services [42 CFR 412.3e].: Yes Medical Necessity: Need For IV Fluids, Need for Pain Control, Need for IV Antibiotics, Risk of Complication if Not Cared For in Hospital - Plan Summary Plan Summary: 58 yo male with persistent sigmoid diverticulitis since 09/02/18 who failed po antibiotic therapy. Claims he had 8 episodes of pneumaturia. Admitted because of recurrent abdominal pains,fever,chills and possible colovesical fistula. CT scan shows persistent sigmoid diverticulitis. Plans: Keep NPO IV antibiotics after blood cultures Mcguire catheter Hydrate Serial labs
[2018-10-23] MEDS ORDERED: ONDANSETRON HCL INJ/PF 4 MG/2 ML SDV IV PRN (23:27)
[2018-10-23] MEDS ORDERED: MORPHINE SULFATE 10 MG/ML INJ IV PRN (23:27)
[2018-10-23] MEDS ORDERED: CIPROFLOXACIN 400 MG/D5W RTU 400 MG/200 ML RTUPB IV ONE (23:30)
[2018-10-23] MEDS ORDERED: DEXTROSE 50%-WATER 25 GM/50 ML DISP.SYRIN IV PRN ×2 (23:38)
[2018-10-23] MEDS ORDERED: GLUCAGON,HUMAN RECOMB 1 MG INJ SUBCUT PRN (23:38)
[2018-10-23] MEDS ORDERED: DEXTROSE 40% GEL 15 GM TUBE PO PRN ×2 (23:38)
[2018-10-23] MEDS ORDERED: LORAZEPAM INJ 2 MG/1 ML VIAL IV ONE (23:42)
[2018-10-24] MEDS: DEXTROSE 5%-LACTATED RINGERS 1,000 ML IV PRN ×3 (01:20→17:09)
--- NOTE | 2018-10-24 01:35 | PDOC CONSULTATION ---
Consultation Consult Date: 10/23/18 Attending physician:: ANIA CISNEROS Provider Consulted: HALEIGH OQUENDO Consult reason:: uti History of Present Illness Admission Date/PCP: 10/23/18 22:22 DOMINIC HAWLEY History of Present Illness: ELKIN ADAMS is a 58 year old male Past Medical History Medical History: None Cardiac Medical History: Denies: Coronary Artery Disease, Myocardial Infarction, Hypertension Pulmonary Medical History: Denies: Asthma, Bronchitis, Chronic Obstructive Pulmonary Disease (COPD), Pneumonia Neurological Medical History: Denies: Seizures GI Medical History: Reports: Diverticulitis Musculoskeltal Medical History: Denies: Arthritis Psychiatric Medical History: Reports: Tobacco Dependency Hematology: Denies: Anemia Past Surgical History Past Surgical History: Reports: None Social History Information Source: Patient, [facility] Records Lives with: Family Smoking Status: Former Smoker Number of Years Smokin Frequency of Alcohol Use: Rare Hx Recreational Drug Use: No Hx Prescription Drug Abuse: No - Advance Directive Resuscitation Status: Full Code Family History Family History: CAD, Hypertension Parental Family History Reviewed: Yes Children Family History Reviewed: Yes Sibling(s) Family History Reviewed.: Yes Medication/Allergy Home Medications: Amox Tr/Potassium Clavulanate [Augmentin 875-125 mg Tablet] 1 tab PO BID #20 tablet 02/17/14 Oxycodone HCl/Acetaminophen [Percocet 5-325 mg Tablet] 2 tab PO Q4HP PRN #14 tablet 02/17/14 Amox Tr/Potassium Clavulanate [Augmentin 875-125 Tablet] 1 tab PO BID #14 tablet 09/02/18 Ondansetron [Zofran Odt 4 mg Tablet] 1 tab PO Q4H PRN #15 tab.rapdis 09/02/18 Allergies/Adverse Reactions: No Known Allergies Allergy (Verified 10/23/18 16:29) Review of Systems Constitutional: PRESENT: fatigue, weakness, weight loss - 20 pound weight loss in 3 months. ABSENT: chills, fever(s), headache(s), weight gain Eyes: ABSENT: visual disturbances Ears: ABSENT: hearing changes Cardiovascular: ABSENT: chest pain, dyspnea on exertion, edema, orthropnea, palpitations Respiratory: ABSENT: cough, hemoptysis Gastrointestinal: PRESENT: constipation. ABSENT: abdominal pain, diarrhea, hematemesis, hematochezia, nausea, vomiting Genitourinary: ABSENT: dysuria, hematuria Musculoskeletal: ABSENT: joint swelling Integumentary: ABSENT: rash, wounds Neurological: ABSENT: abnormal gait, abnormal speech, confusion, dizziness, focal weakness, syncope Psychiatric: ABSENT: anxiety, depression, homidical ideation, suicidal ideation Endocrine: ABSENT: cold intolerance, heat intolerance, polydipsia, polyuria Hematologic/Lymphatic: ABSENT: easy bleeding, easy bruising Physical Exam Vital Signs: Temp Pulse Resp BP Pulse Ox 98.1 F 72 20 108/59 L 100 10/24/18 00:39 10/24/18 00:39 10/24/18 00:39 10/24/18 00:39 10/24/18 00:39 Intake & Output 10/22/18 10/23/18 10/24/18 11:59 11:59 11:59 Intake Total 2100 Balance 2100 Weight 52.8 kg General appearance: PRESENT: cooperative, mild distress, thin, well-developed, well-nourished Head exam: PRESENT: atraumatic, normocephalic Eye exam: PRESENT: conjunctiva pink, EOMI, PERRLA. ABSENT: scleral icterus Ear exam: PRESENT: normal external ear exam Mouth exam: PRESENT: moist, tongue midline Neck exam: ABSENT: carotid bruit, JVD, lymphadenopathy, thyromegaly Respiratory exam: PRESENT: clear to auscultation nicole, crackles, symmetrical. ABSENT: accessory muscle use, rales, rhonchi, wheezes Cardiovascular exam: PRESENT: RRR. ABSENT: diastolic murmur, rubs, systolic murmur Pulses: PRESENT: normal dorsalis pedis pul Vascular exam: PRESENT: normal capillary refill GI/Abdominal exam: PRESENT: normal bowel sounds, soft. ABSENT: distended, guarding, mass, organolmegaly, rebound, tenderness Rectal exam: PRESENT: deferred Extremities exam: PRESENT: full ROM. ABSENT: calf tenderness, clubbing, pedal edema Neurological exam: PRESENT: alert, awake, oriented to person, oriented to place, oriented to time, oriented to situation, CN II-XII grossly intact. ABSENT: motor sensory deficit Psychiatric exam: PRESENT: appropriate affect, normal mood. ABSENT: homicidal ideation, suicidal ideation Skin exam: PRESENT: dry, intact, warm. ABSENT: cyanosis, rash Results Laboratory Results: 10/23/18 17:46 10/23/18 17:46 10/23/18 10/23/18 10/23/18 17:46 17:46 17:46 WBC 22.2 H RBC 4.59 Hgb 14.4 Hct 41.7 MCV 91 MCH 31.4 MCHC 34.5 RDW 13.7 Plt Count 388 Seg Neutrophils % Not Reportable Sodium 136.3 L Potassium 4.4 Chloride 102 Carbon Dioxide 23 Anion Gap 11 BUN 9 Creatinine 0.65 Est GFR ( Amer) > 60 Glucose 99 Lactic Acid Calcium 9.9 Total Bilirubin 0.3 AST 15 L Alkaline Phosphatase 112 Total Protein 7.3 Albumin 4.4 Lipase Urine Color YELLOW Urine Appearance SLIGHTLY-CLOUDY Urine pH 5.0 Ur Specific [place] 1.012 Urine Protein NEGATIVE Urine Glucose (UA) NEGATIVE Urine Ketones NEGATIVE Urine Blood LARGE H Urine Nitrite NEGATIVE Ur Leukocyte Esterase LARGE H Urine WBC (Auto) 133 Urine RBC (Auto) 22 10/23/18 10/23/18 17:46 22:28 WBC RBC Hgb Hct MCV MCH MCHC RDW Plt Count Seg Neutrophils % Sodium Potassium Chloride Carbon Dioxide Anion Gap BUN Creatinine Est GFR ( Amer) Glucose Lactic Acid 1.4 Calcium Total Bilirubin AST Alkaline Phosphatase Total Protein Albumin Lipase 139.3 Urine Color Urine Appearance Urine pH Ur Specific [place] Urine Protein Urine Glucose (UA) Urine Ketones Urine Blood Urine Nitrite Ur Leukocyte Esterase Urine WBC (Auto) Urine RBC (Auto) Impressions: Abdomen/Pelvis CT 10/23/18 17:31 IMPRESSION: Segment of circumferential wall thickening involving the sigmoid colon which appears persistent from the previous examination dated 09/02/2018 with suspected luminal narrowing though no evidence of significant obstruction. Differential considerations for this finding include muscular hypertrophy related to diverticulosis, an underlying infectious/inflammatory colitis, or malignancy. Correlation with direct visualization is recommended if not already recently performed, specifically once all signs and symptoms of acute disease have resolved. Prostatomegaly. Persistent mild left hydronephrosis. TECHNICAL DOCUMENTATION: Quality ID # [id number]: Final reports with documentation of one or more dose reduction techniques (e.g., Automated exposure control, adjustment of the mA and/or kV according to patient size, use of iterative reconstruction technique) copyright 2011 [employer] All Rights Reserved Assessment and Plan - Diagnosis (1) Diverticulitis large intestine Qualifiers: Diverticulitis bleeding: without bleeding Diverticulitis complication: without perforation or abscess Qualified Code(s): K57.32 - Diverticulitis of large intestine without perforation or abscess without bleeding Is this a current diagnosis for this admission?: Yes Plan: Defer to surgery (2) Recto-vesical fistula Is this a current diagnosis for this admission?: Yes Plan: Suggested by patient's complaint of passing gas per urethra and pyuria. Empiric antibiotics of Cipro initiated, follow-up blood and urine culture (3) Weight loss Is this a current diagnosis for this admission?: Yes Plan: Possible underlying diverticular related colorectal malignancy versus lung cancer given [id number] history. Consider CT chest. (4) Abdominal pain Qualifiers: Abdominal location: lower abdomen, unspecified Qualified Code(s): R10.30 - Lower abdominal pain, unspecified Is this a current diagnosis for this admission?: Yes Plan: Secondary to #1, defer to surgery (5) UTI (urinary tract infection) Is this a current diagnosis for this admission?: Yes Plan: Empiric antibiotics initiated. Follow-up blood and urine culture - Time Time Spent with patient: 25-34 minutes - Inpatient Certification Medical Necessity: Need Close Monitoring Due to Risk of Patient Decompensation
[2018-10-24] MEDS: METRONIDAZOLE 500 MG/NS RTU 500 MG/100 ML RTUPB IV SCH ×4 (06:52→23:15)
[2018-10-24 07:51] LABS: ABSOLUTE BASOPHILS # (AUTO) 0.1 10^3/uL (0.0-0.2); ABSOLUTE EOSINOPHILS # (AUTO) 0.1 10^3/uL (0.0-0.6); ABSOLUTE LYMPHOCYTES (AUTO) 1.4 10^3/uL (0.5-4.7); ABSOLUTE MONOCYTES (AUTO) 1.1 10^3/uL (0.1-1.4); ABSOLUTE NEUT (AUTO) 9.6 10^3/uL (1.7-8.2); BASOPHILS % (AUTO) 0.5 % (0-2); EOSINOPHILS % (AUTO) 0.6 % (0-6); HEMATOCRIT 37.6 % (37.9-51.0); HEMOGLOBIN 12.9 g/dL (13.5-17.0); LYMPHOCYTES % (AUTO) 11.1 % (13-45); MEAN CORPUSCULAR HEMOGLOBIN 31.3 pg (27.0-33.4); MEAN CORPUSCULAR HGB CONC 34.2 g/dL (32.0-36.0); MEAN CORPUSCULAR VOLUME 92 fl (80-97); MONOCYTES % (AUTO) 8.7 % (3-13); PLATELET COUNT 321 10^3/uL (150-450); RED BLOOD COUNT 4.11 10^6/uL (4.35-5.55); RED CELL DISTRIBUTION WIDTH 13.7 % (11.5-14.0); SEGMENTED NEUTROPHILS % (AUTO) 79.1 % (42-78); TOTAL CELLS COUNTED % (AUTO) 100 %; WHITE BLOOD COUNT 12.2 10^3/uL (4.0-10.5)
[2018-10-24 08:24] LABS: ALBUMIN 3.4 g/dL (3.5-5.0); ALKALINE PHOSPHATASE 81 U/L (38-126); ANION GAP 6 (5-19); ASPARTATE AMINO TRANSFERASE 16 U/L (17-59); BILIRUBIN,DIRECT 0.1 mg/dL (0.0-0.4); BILIRUBIN,TOTAL 0.4 mg/dL (0.2-1.3); BLOOD UREA NITROGEN 6 mg/dL (7-20); CALCIUM 9.1 mg/dL (8.4-10.2); CARBON DIOXIDE 26 mmol/L (22-30); CHLORIDE 107 mmol/L (98-107); GLUCOSE 99 mg/dL (75-110); POTASSIUM 4.2 mmol/L (3.6-5.0)
[2018-10-24] MEDS: IPRATROPIUM/ALBUTEROL 0.5-2.5 MG/3 ML AMPUL NEB SCH ×2 (08:41→19:42)
[2018-10-24] MEDS: CIPROFLOXACIN 400 MG/D5W RTU 400 MG/200 ML RTUPB IV SCH ×2 (09:06→21:23)
[2018-10-24] MEDS: ENOXAPARIN SODIUM INJ 30 MG/0.3 ML DISP.SYRIN SUBCUT SCH (09:08)
--- NOTE | 2018-10-24 10:15 | PDOC PROGRESS REPORT ---
Subjective Progress Note for:: 10/24/18 Subjective:: abd pain Reason For Visit: ACUTE SIGMOID DIVERTICULITIS Physical Exam Vital Signs: Temp Pulse Resp BP Pulse Ox 97.7 F 87 18 124/63 99 10/24/18 08:24 10/24/18 08:43 10/24/18 08:43 10/24/18 08:24 10/24/18 08:43 Intake & Output 10/23/18 10/24/18 10/25/18 06:59 06:59 06:59 Intake Total 2300 1100 Output Total 825 Balance 1475 1100 Weight 52.8 kg General appearance: PRESENT: no acute distress Head exam: PRESENT: normocephalic Eye exam: PRESENT: EOMI Mouth exam: PRESENT: moist Neck exam: PRESENT: full ROM Respiratory exam: PRESENT: clear to auscultation nicole Cardiovascular exam: PRESENT: RRR Pulses: PRESENT: normal radial pulses, normal femoral pulses Vascular exam: PRESENT: normal capillary refill GI/Abdominal exam: PRESENT: soft Rectal exam: PRESENT: deferred Gentrourinary exam: PRESENT: indwelling catheter Extremities exam: PRESENT: full ROM Neurological exam: PRESENT: alert, awake, oriented to person, oriented to place Psychiatric exam: PRESENT: appropriate affect Skin exam: PRESENT: dry Results Laboratory Results: 10/24/18 07:13 10/24/18 07:13 10/23/18 10/23/18 10/23/18 17:46 17:46 17:46 WBC 22.2 H RBC 4.59 Hgb 14.4 Hct 41.7 MCV 91 MCH 31.4 MCHC 34.5 RDW 13.7 Plt Count 388 Seg Neutrophils % Not Reportable Sodium 136.3 L Potassium 4.4 Chloride 102 Carbon Dioxide 23 Anion Gap 11 BUN 9 Creatinine 0.65 Est GFR ( Amer) > 60 Glucose 99 Lactic Acid Calcium 9.9 Total Bilirubin 0.3 AST 15 L Alkaline Phosphatase 112 Total Protein 7.3 Albumin 4.4 Lipase Urine Color YELLOW Urine Appearance SLIGHTLY-CLOUDY Urine pH 5.0 Ur Specific [place] 1.012 Urine Protein NEGATIVE Urine Glucose (UA) NEGATIVE Urine Ketones NEGATIVE Urine Blood LARGE H Urine Nitrite NEGATIVE Ur Leukocyte Esterase LARGE H Urine WBC (Auto) 133 Urine RBC (Auto) 22 10/23/18 10/23/18 10/24/18 17:46 22:28 07:13 WBC 12.2 H RBC 4.11 L Hgb 12.9 L Hct 37.6 L MCV 92 MCH 31.3 MCHC 34.2 RDW 13.7 Plt Count 321 Seg Neutrophils % 79.1 H Sodium Potassium Chloride Carbon Dioxide Anion Gap BUN Creatinine Est GFR ( Amer) Glucose Lactic Acid 1.4 Calcium Total Bilirubin AST Alkaline Phosphatase Total Protein Albumin Lipase 139.3 Urine Color Urine Appearance Urine pH Ur Specific [place] Urine Protein Urine Glucose (UA) Urine Ketones Urine Blood Urine Nitrite Ur Leukocyte Esterase Urine WBC (Auto) Urine RBC (Auto) 10/24/18 07:13 WBC RBC Hgb Hct MCV MCH MCHC RDW Plt Count Seg Neutrophils % Sodium 139.2 Potassium 4.2 Chloride 107 Carbon Dioxide 26 Anion Gap 6 BUN 6 L Creatinine 0.59 Est GFR ( Amer) > 60 Glucose 99 Lactic Acid Calcium 9.1 Total Bilirubin 0.4 AST 16 L Alkaline Phosphatase 81 Total Protein 6.0 L Albumin 3.4 L Lipase Urine Color Urine Appearance Urine pH Ur Specific [place] Urine Protein Urine Glucose (UA) Urine Ketones Urine Blood Urine Nitrite Ur Leukocyte Esterase Urine WBC (Auto) Urine RBC (Auto) Impressions: Abdomen/Pelvis CT 10/23/18 17:31 IMPRESSION: Segment of circumferential wall thickening involving the sigmoid colon which appears persistent from the previous examination dated 09/02/2018 with suspected luminal narrowing though no evidence of significant obstruction. Differential considerations for this finding include muscular hypertrophy related to diverticulosis, an underlying infectious/inflammatory colitis, or malignancy. Correlation with direct visualization is recommended if not already recently performed, specifically once all signs and symptoms of acute disease have resolved. Prostatomegaly. Persistent mild left hydronephrosis. TECHNICAL DOCUMENTATION: Quality ID # [id number]: Final reports with documentation of one or more dose reduction techniques (e.g., Automated exposure control, adjustment of the mA and/or kV according to patient size, use of iterative reconstruction technique) copyright 2010 [employer]- All Rights Reserved Assessment & Plan - Diagnosis (1) Diverticulitis large intestine Qualifiers: Diverticulitis bleeding: without bleeding Diverticulitis complication: without perforation or abscess Qualified Code(s): K57.32 - Diverticulitis of large intestine without perforation or abscess without bleeding Is this a current diagnosis for this admission?: Yes (2) Recto-vesical fistula Is this a current diagnosis for this admission?: Yes - Plan Summary Plan Summary: acute diverticuliltis with colovesicle fistula improving iwth abx pt will need surgery after acute inflammation resolves will cont iv abx start po clears cont campos
--- NOTE | 2018-10-24 16:33 | PDOC PROGRESS REPORT ---
Subjective Progress Note for:: 10/24/18 Subjective:: No adverse events overnight. His only complaint is that he wants to have something to eat if possible. He said he got frustrated yesterday because he felt like no one was telling him exactly what was going on. He recounted his story to me, and it seemed like this current episode is been going on for a few weeks at least. He understands what we are trying to do now. Reason For Visit: ACUTE SIGMOID DIVERTICULITIS Physical Exam Vital Signs: Temp Pulse Resp BP Pulse Ox 98.2 F 60 16 121/69 100 10/24/18 11:51 10/24/18 14:00 10/24/18 11:51 10/24/18 11:51 10/24/18 11:51 Intake & Output 10/23/18 10/24/18 10/25/18 06:59 06:59 06:59 Intake Total 2300 1400 Output Total 825 Balance 1475 1400 Weight 52.8 kg General appearance: PRESENT: no acute distress, cooperative, disheveled, thin Respiratory exam: PRESENT: clear to auscultation nicole, symmetrical, unlabored. ABSENT: accessory muscle use, chest wall tenderness, crackles, prolonged expiratory phas, rhonchi, tachypnea, wheezes Cardiovascular exam: PRESENT: RRR, +S1, +S2 Pulses: PRESENT: normal carotid pulses Vascular exam: PRESENT: normal capillary refill GI/Abdominal exam: PRESENT: normal bowel sounds, soft. ABSENT: distended, guarding, rebound, tenderness Extremities exam: ABSENT: clubbing, pedal edema Musculoskeletal exam: PRESENT: normal inspection. ABSENT: deformity Neurological exam: PRESENT: alert, awake, oriented to person, oriented to place, oriented to time, oriented to situation Psychiatric exam: PRESENT: appropriate affect, normal mood Skin exam: PRESENT: dry, warm Results Laboratory Results: 10/24/18 07:13 10/24/18 07:13 10/23/18 10/23/18 10/23/18 17:46 17:46 17:46 WBC 22.2 H RBC 4.59 Hgb 14.4 Hct 41.7 MCV 91 MCH 31.4 MCHC 34.5 RDW 13.7 Plt Count 388 Seg Neutrophils % Not Reportable Sodium 136.3 L Potassium 4.4 Chloride 102 Carbon Dioxide 23 Anion Gap 11 BUN 9 Creatinine 0.65 Est GFR ( Amer) > 60 Glucose 99 Lactic Acid Calcium 9.9 Total Bilirubin 0.3 AST 15 L Alkaline Phosphatase 112 Total Protein 7.3 Albumin 4.4 Lipase Urine Color YELLOW Urine Appearance SLIGHTLY-CLOUDY Urine pH 5.0 Ur Specific [place] 1.012 Urine Protein NEGATIVE Urine Glucose (UA) NEGATIVE Urine Ketones NEGATIVE Urine Blood LARGE H Urine Nitrite NEGATIVE Ur Leukocyte Esterase LARGE H Urine WBC (Auto) 133 Urine RBC (Auto) 22 10/23/18 10/23/18 10/24/18 17:46 22:28 07:13 WBC 12.2 H RBC 4.11 L Hgb 12.9 L Hct 37.6 L MCV 92 MCH 31.3 MCHC 34.2 RDW 13.7 Plt Count 321 Seg Neutrophils % 79.1 H Sodium Potassium Chloride Carbon Dioxide Anion Gap BUN Creatinine Est GFR ( Amer) Glucose Lactic Acid 1.4 Calcium Total Bilirubin AST Alkaline Phosphatase Total Protein Albumin Lipase 139.3 Urine Color Urine Appearance Urine pH Ur Specific [place] Urine Protein Urine Glucose (UA) Urine Ketones Urine Blood Urine Nitrite Ur Leukocyte Esterase Urine WBC (Auto) Urine RBC (Auto) 10/24/18 07:13 WBC RBC Hgb Hct MCV MCH MCHC RDW Plt Count Seg Neutrophils % Sodium 139.2 Potassium 4.2 Chloride 107 Carbon Dioxide 26 Anion Gap 6 BUN 6 L Creatinine 0.59 Est GFR ( Amer) > 60 Glucose 99 Lactic Acid Calcium 9.1 Total Bilirubin 0.4 AST 16 L Alkaline Phosphatase 81 Total Protein 6.0 L Albumin 3.4 L Lipase Urine Color Urine Appearance Urine pH Ur Specific [place] Urine Protein Urine Glucose (UA) Urine Ketones Urine Blood Urine Nitrite Ur Leukocyte Esterase Urine WBC (Auto) Urine RBC (Auto) Impressions: Abdomen/Pelvis CT 10/23/18 17:31 IMPRESSION: Segment of circumferential wall thickening involving the sigmoid colon which appears persistent from the previous examination dated 09/02/2018 with suspected luminal narrowing though no evidence of significant obstruction. Differential considerations for this finding include muscular hypertrophy related to diverticulosis, an underlying infectious/inflammatory colitis, or malignancy. Correlation with direct visualization is recommended if not already recently performed, specifically once all signs and symptoms of acute disease have resolved. Prostatomegaly. Persistent mild left hydronephrosis. TECHNICAL DOCUMENTATION: Quality ID # [id number]: Final reports with documentation of one or more dose reduction techniques (e.g., Automated exposure control, adjustment of the mA and/or kV according to patient size, use of iterative reconstruction technique) copyright 2011 [employer]- All Rights Reserved Assessment and Plan - Diagnosis (1) Diverticulitis large intestine Qualifiers: Diverticulitis bleeding: without bleeding Diverticulitis complication: without perforation or abscess Qualified Code(s): K57.32 - Diverticulitis of large intestine without perforation or abscess without bleeding Is this a current diagnosis for this admission?: Yes Plan: Currently on IV Cipro and Flagyl. Once he improved a little bit in the hospital and is able take p.o., can probably be transitioned over to orals which he can complete at home. (2) Recto-vesical fistula Is this a current diagnosis for this admission?: Yes Plan: Plan per surgery is to let the acute infection cool off and let the tissue become less inflamed, and then to repair this electively as an outpatient. - Time Time Spent with patient: 15-24 minutes
[2018-10-24] MEDS ORDERED: ACETAMINOPHEN 325 MG TABLET PO PRN (21:39)
[2018-10-25] MEDS: METRONIDAZOLE 500 MG/NS RTU 500 MG/100 ML RTUPB IV SCH ×4 (05:30→23:18)
[2018-10-25] MEDS: IPRATROPIUM/ALBUTEROL 0.5-2.5 MG/3 ML AMPUL NEB SCH ×2 (07:58→20:01)
[2018-10-25] MEDS: DEXTROSE 5%-LACTATED RINGERS 1,000 ML IV PRN (09:16)
[2018-10-25] MEDS: CIPROFLOXACIN 400 MG/D5W RTU 400 MG/200 ML RTUPB IV SCH ×2 (09:16→21:43)
[2018-10-25] MEDS: ENOXAPARIN SODIUM INJ 30 MG/0.3 ML DISP.SYRIN SUBCUT SCH (09:34)
--- NOTE | 2018-10-25 14:02 | PDOC PROGRESS REPORT ---
Subjective Progress Note for:: 10/25/18 Subjective:: Having BM. Comfortable. Upset with me after admitting him in the ER 2 nights ago. Reason For Visit: ACUTE SIGMOID DIVERTICULITIS Physical Exam Vital Signs: Temp Pulse Resp BP Pulse Ox 98.0 F 73 16 109/95 H 100 10/25/18 12:23 10/25/18 12:23 10/25/18 12:23 10/25/18 12:23 10/25/18 12:23 Intake & Output 10/24/18 10/25/18 10/26/18 06:59 06:59 06:59 Intake Total 2300 4972 200 Output Total 825 3375 Balance 1475 1597 200 Weight 52.8 kg 56.5 kg Exam: Refuses to be examined by me. Mcguire in place and urine looks clear. Results Laboratory Results: 10/24/18 07:13 10/24/18 07:13 10/24/18 00:09 Catheterized Urine Urine Culture - Final 1,000 col/ml Impressions: Abdomen/Pelvis CT 10/23/18 17:31 IMPRESSION: Segment of circumferential wall thickening involving the sigmoid colon which appears persistent from the previous examination dated 09/02/2018 with suspected luminal narrowing though no evidence of significant obstruction. Differential considerations for this finding include muscular hypertrophy related to diverticulosis, an underlying infectious/inflammatory colitis, or malignancy. Correlation with direct visualization is recommended if not already recently performed, specifically once all signs and symptoms of acute disease have resolved. Prostatomegaly. Persistent mild left hydronephrosis. TECHNICAL DOCUMENTATION: Quality ID # [id number]: Final reports with documentation of one or more dose reduction techniques (e.g., Automated exposure control, adjustment of the mA and/or kV according to patient size, use of iterative reconstruction technique) copyright 2011 [employer]- All Rights Reserved Assessment & Plan - Diagnosis (1) acute sigmoid diverticulitis Is this a current diagnosis for this admission?: Yes (2) Abdominal pain Qualifiers: Abdominal location: lower abdomen, unspecified Qualified Code(s): R10.30 - Lower abdominal pain, unspecified Is this a current diagnosis for this admission?: Yes (3) UTI (urinary tract infection) Is this a current diagnosis for this admission?: Yes - Time Time Spent with patient: Less than 15 minutes - Inpatient Certification Medical Necessity: Need For IV Fluids, Need for IV Antibiotics - Plan Summary Plan Summary: WBC is trending down Plan: Increase diet to full liquids today Continue IV antibiotics Dr Joseph will follow him tomorrow.
--- NOTE | 2018-10-25 15:43 | PDOC PROGRESS REPORT ---
Subjective Progress Note for:: 10/25/18 Subjective:: No adverse events overnight. No new complaints. Vital signs been stable. He wants to advance his diet. Reason For Visit: ACUTE SIGMOID DIVERTICULITIS Physical Exam Vital Signs: Temp Pulse Resp BP Pulse Ox 98.0 F 73 16 109/95 H 100 10/25/18 12:23 10/25/18 14:00 10/25/18 12:23 10/25/18 12:23 10/25/18 12:23 Intake & Output 10/24/18 10/25/18 10/26/18 06:59 06:59 06:59 Intake Total 2300 4972 300 Output Total 825 3375 Balance 1475 1597 300 Weight 52.8 kg 56.5 kg General appearance: PRESENT: no acute distress, cooperative, disheveled, thin Respiratory exam: PRESENT: clear to auscultation nicole, symmetrical, unlabored. ABSENT: accessory muscle use, chest wall tenderness, crackles, prolonged expiratory phas, rhonchi, tachypnea, wheezes Cardiovascular exam: PRESENT: RRR, +S1, +S2 Pulses: PRESENT: normal carotid pulses Vascular exam: PRESENT: normal capillary refill GI/Abdominal exam: PRESENT: normal bowel sounds, soft. ABSENT: distended, guarding, rebound, tenderness Extremities exam: ABSENT: clubbing, pedal edema Musculoskeletal exam: PRESENT: normal inspection. ABSENT: deformity Neurological exam: PRESENT: alert, awake, oriented to person, oriented to place, oriented to time, oriented to situation Psychiatric exam: PRESENT: appropriate affect, normal mood Skin exam: PRESENT: dry, warm Results Laboratory Results: 10/24/18 07:13 10/24/18 07:13 10/24/18 00:09 Catheterized Urine Urine Culture - Final 1,000 col/ml Impressions: Abdomen/Pelvis CT 10/23/18 17:31 IMPRESSION: Segment of circumferential wall thickening involving the sigmoid colon which appears persistent from the previous examination dated 09/02/2018 with suspected luminal narrowing though no evidence of significant obstruction. Differential considerations for this finding include muscular hypertrophy related to diverticulosis, an underlying infectious/inflammatory colitis, or malignancy. Correlation with direct visualization is recommended if not already recently performed, specifically once all signs and symptoms of acute disease have resolved. Prostatomegaly. Persistent mild left hydronephrosis. TECHNICAL DOCUMENTATION: Quality ID # [id number]: Final reports with documentation of one or more dose reduction techniques (e.g., Automated exposure control, adjustment of the mA and/or kV according to patient size, use of iterative reconstruction technique) copyright 2011 [employer]- All Rights Reserved Assessment and Plan - Diagnosis (1) Diverticulitis large intestine Qualifiers: Diverticulitis bleeding: without bleeding Diverticulitis complication: without perforation or abscess Qualified Code(s): K57.32 - Diverticulitis of large intestine without perforation or abscess without bleeding Is this a current diagnosis for this admission?: Yes Plan: Currently on IV Cipro and Flagyl. Once he improved a little bit in the hospital and is able take p.o., can probably be transitioned over to orals which he can complete at home. He is tolerating p.o. now and his diet is being advanced, will defer to surgery regarding when he can be transitioned to p.o. antibiotics. (2) Recto-vesical fistula Is this a current diagnosis for this admission?: Yes Plan: Plan per surgery is to let the acute infection cool off and let the tissue become less inflamed, and then to repair this electively as an outpatient. - Time Time Spent with patient: 15-24 minutes
[2018-10-26] MEDS: DEXTROSE 5%-LACTATED RINGERS 1,000 ML IV PRN ×2 (04:12→10:20)
[2018-10-26] MEDS: METRONIDAZOLE 500 MG/NS RTU 500 MG/100 ML RTUPB IV SCH ×3 (05:25→17:00)
--- NOTE | 2018-10-26 07:44 | PDOC PROGRESS REPORT ---
Subjective Progress Note for:: 10/26/18 Subjective:: feels better, no abd pain Reason For Visit: ACUTE SIGMOID DIVERTICULITIS Physical Exam Vital Signs: Temp Pulse Resp BP Pulse Ox 98.3 F 55 L 18 113/61 100 10/26/18 04:07 10/26/18 07:00 10/26/18 04:07 10/26/18 04:07 10/26/18 04:07 Intake & Output 10/25/18 10/26/18 10/27/18 06:59 06:59 06:59 Intake Total 4970 2741 Output Total 8398 2076 Balance 1597 670 Weight 56.5 kg 56 kg General appearance: PRESENT: no acute distress Head exam: PRESENT: normocephalic Eye exam: PRESENT: EOMI Ear exam: PRESENT: normal external ear exam Mouth exam: PRESENT: moist Neck exam: PRESENT: full ROM Respiratory exam: PRESENT: clear to auscultation niocle Cardiovascular exam: PRESENT: RRR GI/Abdominal exam: PRESENT: soft Rectal exam: PRESENT: deferred Extremities exam: PRESENT: full ROM Musculoskeletal exam: PRESENT: full ROM Neurological exam: PRESENT: alert, awake, oriented to person, oriented to place Psychiatric exam: PRESENT: anxious Skin exam: PRESENT: dry Results Laboratory Results: 10/24/18 07:13 10/24/18 07:13 10/24/18 00:09 Catheterized Urine Urine Culture - Final 1,000 col/ml Impressions: Abdomen/Pelvis CT 10/23/18 17:31 IMPRESSION: Segment of circumferential wall thickening involving the sigmoid colon which appears persistent from the previous examination dated 09/02/2018 with suspected luminal narrowing though no evidence of significant obstruction. Differential considerations for this finding include muscular hypertrophy related to diverticulosis, an underlying infectious/inflammatory colitis, or malignancy. Correlation with direct visualization is recommended if not already recently performed, specifically once all signs and symptoms of acute disease have resolved. Prostatomegaly. Persistent mild left hydronephrosis. TECHNICAL DOCUMENTATION: Quality ID # 436: Final reports with documentation of one or more dose reduction techniques (e.g., Automated exposure control, adjustment of the mA and/or kV according to patient size, use of iterative reconstruction technique) copyright 2010 [employer]- All Rights Reserved Assessment & Plan - Diagnosis (1) Diverticulitis large intestine Qualifiers: Diverticulitis bleeding: without bleeding Diverticulitis complication: without perforation or abscess Qualified Code(s): K57.32 - Diverticulitis of large intestine without perforation or abscess without bleeding Is this a current diagnosis for this admission?: Yes (2) Recto-vesical fistula Is this a current diagnosis for this admission?: Yes - Plan Summary Plan Summary: pain has resolved 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
[2018-10-26] MEDS: IPRATROPIUM/ALBUTEROL 0.5-2.5 MG/3 ML AMPUL NEB SCH (08:10)
[2018-10-26] MEDS ORDERED: IPRATROPIUM/ALBUTEROL 0.5-2.5 MG/3 ML AMPUL NEB PRN (08:57)
[2018-10-26] MEDS: CIPROFLOXACIN 400 MG/D5W RTU 400 MG/200 ML RTUPB IV SCH ×2 (10:15→21:27)
[2018-10-26 10:43] LABS: MEAN CORPUSCULAR VOLUME 91 fl (80-97)
[2018-10-26] MEDS: ENOXAPARIN SODIUM INJ 30 MG/0.3 ML DISP.SYRIN SUBCUT SCH (10:49)
[2018-10-26 11:00] LABS: ABSOLUTE EOSINOPHILS # (AUTO) 0.1 10^3/uL (0.0-0.6); ABSOLUTE LYMPHOCYTES (AUTO) 1.7 10^3/uL (0.5-4.7); ABSOLUTE MONOCYTES (AUTO) 0.6 10^3/uL (0.1-1.4); ABSOLUTE NEUT (AUTO) 4.6 10^3/uL (1.7-8.2); BASOPHILS % (AUTO) 0.7 % (0-2); EOSINOPHILS % (AUTO) 1.9 % (0-6); HEMATOCRIT 36.9 % (37.9-51.0); HEMOGLOBIN 12.6 g/dL (13.5-17.0); LYMPHOCYTES % (AUTO) 24.2 % (13-45); MEAN CORPUSCULAR HEMOGLOBIN 31.2 pg (27.0-33.4); MEAN CORPUSCULAR HGB CONC 34.2 g/dL (32.0-36.0); MONOCYTES % (AUTO) 8.6 % (3-13); PLATELET COUNT 343 10^3/uL (150-450); RED BLOOD COUNT 4.05 10^6/uL (4.35-5.55); RED CELL DISTRIBUTION WIDTH 13.7 % (11.5-14.0); SEGMENTED NEUTROPHILS % (AUTO) 64.6 % (42-78); TOTAL CELLS COUNTED % (AUTO) 100 %; WHITE BLOOD COUNT 7.1 10^3/uL (4.0-10.5)
--- NOTE | 2018-10-26 15:43 | PDOC PROGRESS REPORT ---
Subjective Progress Note for:: 10/26/18 Subjective:: No adverse events overnight. No new complaints. Vital signs been stable. He is been tolerating the advancement of his diet. Reason For Visit: ACUTE SIGMOID DIVERTICULITIS Physical Exam Vital Signs: Temp Pulse Resp BP Pulse Ox 97.6 F 60 16 125/66 100 10/26/18 12:15 10/26/18 14:00 10/26/18 12:15 10/26/18 12:15 10/26/18 12:15 Intake & Output 10/25/18 10/26/18 10/27/18 06:59 06:59 06:59 Intake Total 4972 2745 913 Output Total 4395 2075 Balance 1597 670 913 Weight 56.5 kg 56 kg General appearance: PRESENT: no acute distress, cooperative, disheveled, thin Respiratory exam: PRESENT: clear to auscultation nicole, symmetrical, unlabored. ABSENT: accessory muscle use, chest wall tenderness, crackles, prolonged expiratory phas, rhonchi, tachypnea, wheezes Cardiovascular exam: PRESENT: RRR, +S1, +S2 Pulses: PRESENT: normal carotid pulses Vascular exam: PRESENT: normal capillary refill GI/Abdominal exam: PRESENT: normal bowel sounds, soft. ABSENT: distended, guarding, rebound, tenderness Extremities exam: ABSENT: clubbing, pedal edema Musculoskeletal exam: PRESENT: normal inspection. ABSENT: deformity Neurological exam: PRESENT: alert, awake, oriented to person, oriented to place, oriented to time, oriented to situation Psychiatric exam: PRESENT: appropriate affect, normal mood Skin exam: PRESENT: dry, warm Results Laboratory Results: 10/26/18 10:05 10/24/18 07:13 10/26/18 10:05 WBC 7.1 RBC 4.05 L Hgb 12.6 L Hct 36.9 L MCV 91 MCH 31.2 MCHC 34.2 RDW 13.7 Plt Count 343 Seg Neutrophils % 64.6 Impressions: Abdomen/Pelvis CT 10/23/18 17:31 IMPRESSION: Segment of circumferential wall thickening involving the sigmoid colon which appears persistent from the previous examination dated 09/02/2018 with suspected luminal narrowing though no evidence of significant obstruction. Differential considerations for this finding include muscular hypertrophy related to diverticulosis, an underlying infectious/inflammatory colitis, or malignancy. Correlation with direct visualization is recommended if not already recently performed, specifically once all signs and symptoms of acute disease have resolved. Prostatomegaly. Persistent mild left hydronephrosis. TECHNICAL DOCUMENTATION: Quality ID # 436: Final reports with documentation of one or more dose reduction techniques (e.g., Automated exposure control, adjustment of the mA and/or kV according to patient size, use of iterative reconstruction technique) copyright 2011 [employer]- All Rights Reserved Assessment and Plan - Diagnosis (1) Diverticulitis large intestine Qualifiers: Diverticulitis bleeding: without bleeding Diverticulitis complication: without perforation or abscess Qualified Code(s): K57.32 - Diverticulitis of large intestine without perforation or abscess without bleeding Is this a current diagnosis for this admission?: Yes Plan: Currently on IV Cipro and Flagyl. Once he improved a little bit in the hospital, can probably be transitioned over to orals which he can complete at home. He is tolerating p.o. now and his diet is being advanced, will defer to surgery regarding when he can be transitioned to p.o. antibiotics. (2) Recto-vesical fistula Is this a current diagnosis for this admission?: Yes Plan: Plan per surgery is to let the acute infection cool off and let the tissue become less inflamed, and then to repair this electively as an outpatient. - Time Time Spent with patient: 15-24 minutes
[2018-10-27] MEDS: METRONIDAZOLE 500 MG/NS RTU 500 MG/100 ML RTUPB IV SCH ×2 (00:30→05:37)
[2018-10-27] MEDS: DEXTROSE 5%-LACTATED RINGERS 1,000 ML IV PRN (01:52)
[2018-10-27 08:35] LABS: ABSOLUTE EOSINOPHILS # (AUTO) 0.2 10^3/uL (0.0-0.6); ABSOLUTE MONOCYTES (AUTO) 0.6 10^3/uL (0.1-1.4); ABSOLUTE NEUT (AUTO) 3.3 10^3/uL (1.7-8.2); BASOPHILS % (AUTO) 0.8 % (0-2); EOSINOPHILS % (AUTO) 3.8 % (0-6); HEMATOCRIT 38.6 % (37.9-51.0); HEMOGLOBIN 13.2 g/dL (13.5-17.0); MEAN CORPUSCULAR HGB CONC 34.1 g/dL (32.0-36.0); MEAN CORPUSCULAR VOLUME 91 fl (80-97); MONOCYTES % (AUTO) 10.2 % (3-13); PLATELET COUNT 355 10^3/uL (150-450); RED BLOOD COUNT 4.25 10^6/uL (4.35-5.55); RED CELL DISTRIBUTION WIDTH 13.8 % (11.5-14.0); SEGMENTED NEUTROPHILS % (AUTO) 53.2 % (42-78); TOTAL CELLS COUNTED % (AUTO) 100 %; WHITE BLOOD COUNT 6.1 10^3/uL (4.0-10.5)
[2018-10-27] MEDS: CIPROFLOXACIN 400 MG/D5W RTU 400 MG/200 ML RTUPB IV SCH (09:14)
[2018-10-27] MEDS: ENOXAPARIN SODIUM INJ 30 MG/0.3 ML DISP.SYRIN SUBCUT SCH (09:21)
--- NOTE | 2018-10-27 12:17 | PDOC DISCHARGE SUMMARY ---
General - Admit/Disc Date/PCP Admission Date/Primary Care Provider: 10/23/18 22:22 DOMINIC HAWLEY Discharge Date: 10/27/18 - Discharge Diagnosis (1) Diverticulitis large intestine Is this a current diagnosis for this admission?: Yes (2) Recto-vesical fistula Is this a current diagnosis for this admission?: Yes - Additional Information Resuscitation Status: Full Code Discharge Diet: As Tolerated, Full Liquids Discharge Activity: Activity As Tolerated Home Medications: No Home Medications 10/24/18 History of Present Illness History of Present Illness: ELKIN ADAMS is a 58 year old male Hospital Course Hospital Course: Is a 58-year-old male who was admitted on 23 October with left lower quadrant abdominal pain suprapubic abdominal pain CT scan consistent with a diverticulitis. Reported him passing air via his bladder for few days prior to his admission. She had chills and fever and elevated white count upon admission he was started on IV antibiotics his chills and fever abdominal pain and white blood count subsequently were resolved. He was started on a clear liquid diet which was slowly advanced to a soft diet at the time of discharge she is pain-free he is voiding freely without a Mcguire catheter in place he will be discharged home today on p.o. antibiotics ciprofloxacin 500 mill grams p.o. twice daily Flagyl 250 mg p.o. 3 times daily He will follow-up with me in the surgical clinic approximately 7 to 10 days after discharge at which time we will repeat the CT scan and and on sigmoid colectomy. Final diagnosis is diverticulitis with colo-vesicle fistula Physical Exam Vital Signs: Temp Pulse Resp BP Pulse Ox 98.2 F 59 L 17 112/65 100 10/27/18 07:23 10/27/18 07:23 10/27/18 07:23 10/27/18 07:23 10/27/18 07:23 Intake & Output 10/26/18 10/27/18 10/28/18 06:59 06:59 06:59 Intake Total 2745 4063 200 Output Total 2075 5400 Balance 670 -1337 200 Weight 56 kg 52.6 kg General appearance: PRESENT: no acute distress Head exam: PRESENT: normocephalic Eye exam: PRESENT: EOMI Ear exam: PRESENT: normal external ear exam Mouth exam: PRESENT: moist Neck exam: PRESENT: full ROM Respiratory exam: PRESENT: clear to auscultation nicole Cardiovascular exam: PRESENT: RRR Pulses: PRESENT: normal radial pulses, normal femoral pulses Vascular exam: PRESENT: normal capillary refill GI/Abdominal exam: PRESENT: soft Rectal exam: PRESENT: deferred Extremities exam: PRESENT: full ROM Musculoskeletal exam: PRESENT: full ROM Neurological exam: PRESENT: alert, awake, oriented to person, oriented to place Skin exam: PRESENT: dry Results Laboratory Results: 10/27/18 08:00 10/24/18 07:13 10/27/18 08:00 WBC 6.1 RBC 4.25 L Hgb 13.2 L Hct 38.6 MCV 91 MCH 31.0 MCHC 34.1 RDW 13.8 Plt Count 355 Seg Neutrophils % 53.2 Impressions: Abdomen/Pelvis CT 10/23/18 17:31 IMPRESSION: Segment of circumferential wall thickening involving the sigmoid colon which appears persistent from the previous examination dated 09/02/2018 with suspected luminal narrowing though no evidence of significant obstruction. Differential considerations for this finding include muscular hypertrophy related to diverticulosis, an underlying infectious/inflammatory colitis, or malignancy. Correlation with direct visualization is recommended if not already recently performed, specifically once all signs and symptoms of acute disease have resolved. Prostatomegaly. Persistent mild left hydronephrosis. TECHNICAL DOCUMENTATION: Quality ID # 436: Final reports with documentation of one or more dose reduction techniques (e.g., Automated exposure control, adjustment of the mA and/or kV according to patient size, use of iterative reconstruction technique) copyright 2011 [employer]- All Rights Reserved Qualifiers - * PATIENT BEING DISCHARGED WITH ANY OF THE FOLLOWING DIAGNOSIS: No VTE patient discharged on overlapping Therapy?: No Reason(s) for not prescribing Overlap Therapy:: Not indicated Reason(s) for not prescribing Anti-thrombolytic therapy:: Not indicated Reason(s) for not prescribing Anti-coagulation therapy:: Not indicated Reason(s) for not prescribing Statins therapy:: Not indicated Reason(s) for not prescribing Aspirin therapy:: Not indicated Reason(s) for not prescribing Statin therapy:: Not indicated Reason(s) for not prescribing ACEI/ARBS:: Not indicated Acute Heart Failure - Is this a Heart Failure Patient?: No
[2018-10-27 12:51] VITALS: BP 108/59
== END 2018-10-27 13:32 | disposition home or self-care (01) | DRG 392 ==
LOC: ER 16:27 → EH 22:22 → 3W 10-24 00:47
PROVIDERS: ADMIT Surgery; ATTEND Surgery
DX: K57.32 Diverticulitis of large intestine without perforation or abscess without bleeding (principal); N32.1 Vesicointestinal fistula; N39.0 Urinary tract infection, site not specified; N13.30 Unspecified hydronephrosis; R10.30 Lower abdominal pain, unspecified; R63.4 Abnormal weight loss
CPT/HCPCS: 36415; 74177; 80053; 81001; 82962; 83605; 83690; 85025; 87040; 87086; 94640; 94799; 96361; 96365; 99284; J0744; J2060; J2270; J2405; J2543; J3490; J7030; J7121; J7620

== ENCOUNTER 2018-11-29 11:47 | Emergency (ER) | payer OTHER ==
--- NOTE | 2018-11-29 12:14 | ER Document Report ---
ED Medical Screen (RME) - General Chief Complaint: Pain With Urination Stated Complaint: URINARY PROBLEM Time Seen by Provider: 11/29/18 12:09 Primary Care Provider: MARSHA TOLENTINO FNP [Primary Care Provider] - Follow up as needed Mode of Arrival: Ambulatory Information source: Patient Notes: 58-year-old male presented to ED for complaints of signs and symptoms of another UTI. He has a history of diverticulitis which formed a fistula which is caused UTIs in the past. He states that he has surgery scheduled for December 27 for the fistula/diverticulitis but has a UTI at this time. We will get urine urine cultures and blood work as he states he is not wanting to eat and drink at this time. I have greeted and performed a rapid initial assessment of this patient. A comprehensive ED assessment and evaluation of the patient, analysis of test results and completion of medical decision making process will be conducted by an additional ED providers. TRAVEL OUTSIDE OF THE [place] IN LAST 30 DAYS: No - Related Data Allergies/Adverse Reactions: No Known Allergies Allergy (Verified 10/23/18 16:29) Past Medical History - Past Medical History Cardiac Medical History: Denies: Hx Coronary Artery Disease, Hx Heart Attack, Hx Hypertension Pulmonary Medical History: Denies: Hx Asthma, Hx Bronchitis, Hx COPD, Hx Pneumonia Neurological Medical History: Denies: Hx Cerebrovascular Accident, Hx Seizures Renal/ Medical History: Denies: Hx Peritoneal Dialysis GI Medical History: Reports: Hx Diverticulitis Musculoskeltal Medical History: Denies Hx Arthritis Past Surgical History: Reports: Hx Inguinal Hernia - Immunizations Hx Diphtheria, Pertussis, Tetanus Vaccination: No Physical Exam - Vital signs Vitals: Temp Pulse Resp BP Pulse Ox 98.9 F 90 16 128/69 H 100 11/29/18 12:01 11/29/18 12:01 11/29/18 12:01 11/29/18 12:01 11/29/18 12:01 Course - Vital Signs Vital signs: Temp Pulse Resp BP Pulse Ox 98.9 F 90 16 128/69 H 100 11/29/18 12:01 11/29/18 12:01 11/29/18 12:01 11/29/18 12:01 11/29/18 12:01 Doctor's Discharge - Discharge Referrals: MARSHA TOLENTINO FNP [Primary Care Provider] - Follow up as needed
[2018-11-29 12:32] LABS: APPEARANCE,URINE CLEAR; BILIRUBIN,URINE NEGATIVE (NEGATIVE); COLOR,URINE STRAW; GLUCOSE, URINE NEGATIVE (NEGATIVE); KETONES,URINE NEGATIVE (NEGATIVE); LEUKOCYTE ESTERASE,URINE LARGE (NEGATIVE); NITRITE,URINE NEGATIVE (NEGATIVE); PROTEIN,URINE NEGATIVE (NEGATIVE); URINE SPECIFIC GRAVITY 1.002; UROBILINOGEN,URINE NEGATIVE mg/dL (<2.0)
[2018-11-29 12:38] LABS: ABSOLUTE BASOPHILS # (AUTO) 0.2 10^3/uL (0.0-0.2); ABSOLUTE EOSINOPHILS # (AUTO) 0.1 10^3/uL (0.0-0.6); ABSOLUTE LYMPHOCYTES (AUTO) 2.5 10^3/uL (0.5-4.7); ABSOLUTE MONOCYTES (AUTO) 1.9 10^3/uL (0.1-1.4); ABSOLUTE NEUT (AUTO) 14.7 10^3/uL (1.7-8.2); BASOPHILS % (AUTO) 0.8 % (0-2); EOSINOPHILS % (AUTO) 0.7 % (0-6); HEMATOCRIT 42.3 % (37.9-51.0); HEMOGLOBIN 14.3 g/dL (13.5-17.0); LYMPHOCYTES % (AUTO) 12.8 % (13-45); MEAN CORPUSCULAR HEMOGLOBIN 31.1 pg (27.0-33.4); MEAN CORPUSCULAR HGB CONC 33.8 g/dL (32.0-36.0); MEAN CORPUSCULAR VOLUME 92 fl (80-97); MONOCYTES % (AUTO) 9.7 % (3-13); PLATELET COUNT 341 10^3/uL (150-450); RED CELL DISTRIBUTION WIDTH 14.3 % (11.5-14.0); TOTAL CELLS COUNTED % (AUTO) 100 %; WHITE BLOOD COUNT 19.4 10^3/uL (4.0-10.5)
[2018-11-29 13:08] LABS: ALBUMIN 4.4 g/dL (3.5-5.0); ALKALINE PHOSPHATASE 92 U/L (38-126); ANION GAP 9 (5-19); ASPARTATE AMINO TRANSFERASE 13 U/L (17-59); BILIRUBIN,DIRECT 0.1 mg/dL (0.0-0.4); BILIRUBIN,TOTAL 0.5 mg/dL (0.2-1.3); BLOOD UREA NITROGEN 6 mg/dL (7-20); CALCIUM 9.4 mg/dL (8.4-10.2); CARBON DIOXIDE 26 mmol/L (22-30); CHLORIDE 102 mmol/L (98-107); GLUCOSE 102 mg/dL (75-110); POTASSIUM 3.9 mmol/L (3.6-5.0); TOTAL PROTEIN 7.6 g/dL (6.3-8.2)
--- NOTE | 2018-11-29 13:22 | ER Document Report ---
ED General - General Chief Complaint: Urinary Problem Stated Complaint: URINARY PROBLEM Time Seen by Provider: 11/29/18 12:09 Primary Care Provider: MARSHA TOLENTINO FNP [Primary Care Provider] - Follow up as needed Mode of Arrival: Ambulatory Information source: Patient TRAVEL OUTSIDE OF THE [place] IN LAST 30 DAYS: No - HPI Notes: Patient presents with complaints of dysuria and lower abdominal cramping. He states he has had UTIs in the past and this feels similar. Patient's symptoms started yesterday. They have been mild. Abdominal pain is been crampy. It radiates across his abdomen. Nothing makes it better or worse. There is been some blood as well in his stool. But however he has had this before. He is scheduled on December 272018 to have surgery here at this hospital on his colon. Patient has not had vomiting. Symptoms have been intermittent. - Related Data Allergies/Adverse Reactions: No Known Allergies Allergy (Verified 10/23/18 16:29) Past Medical History - General Information source: Patient - Social History Smoking Status: Never Smoker Chew tobacco use (# tins/day): No Frequency of alcohol use: None Drug Abuse: None Family History: CAD, Hypertension Patient has suicidal ideation: No Patient has homicidal ideation: No - Past Medical History Cardiac Medical History: Denies: Hx Coronary Artery Disease, Hx Heart Attack, Hx Hypertension Pulmonary Medical History: Denies: Hx Asthma, Hx Bronchitis, Hx COPD, Hx Pneumonia Neurological Medical History: Denies: Hx Cerebrovascular Accident, Hx Seizures Renal/ Medical History: Denies: Hx Peritoneal Dialysis GI Medical History: Reports: Hx Diverticulitis Musculoskeletal Medical History: Denies Hx Arthritis Past Surgical History: Reports: Hx Inguinal Hernia - Immunizations Hx Diphtheria, Pertussis, Tetanus Vaccination: No Review of Systems - Review of Systems Constitutional: denies: Chills, Fever Cardiovascular: denies: Chest pain, Palpitations Respiratory: denies: Cough, Short of breath Gastrointestinal: Abdominal pain, Nausea. denies: Diarrhea -: Yes All other systems reviewed and negative Physical Exam - Vital signs Vitals: Temp Pulse Resp BP Pulse Ox 98.9 F 90 16 128/69 H 100 11/29/18 12:01 11/29/18 12:01 11/29/18 12:01 11/29/18 12:01 11/29/18 12:01 Interpretation: Normal - General General appearance: Appears well, Alert - HEENT Head: Normocephalic, Atraumatic Eyes: Normal Pupils: PERRL - Respiratory Respiratory status: No respiratory distress Chest status: Nontender Breath sounds: Normal Chest palpation: Normal - Cardiovascular Rhythm: Regular Heart sounds: Normal auscultation Murmur: No - Abdominal Inspection: Normal Distension: No distension Bowel sounds: Normal Tenderness: Nontender Organomegaly: No organomegaly - Back Back: Normal, Nontender - Extremities General upper extremity: Normal inspection, Nontender, Normal color, Normal ROM, Normal temperature General lower extremity: Normal inspection, Nontender, Normal color, Normal ROM, Normal temperature, Normal weight bearing. No: Brook's sign - Neurological Neuro grossly intact: Yes Cognition: Normal Orientation: AAOx4 Rekha Coma Scale Eye Opening: Spontaneous [place] Coma Scale Verbal: Oriented Rekha Coma Scale Motor: Obeys Commands [place]field Coma Scale Total: 15 Speech: Normal Motor strength normal: LUE, RUE, LLE, RLE Sensory: Normal - Psychological Associated symptoms: Normal affect, Normal mood - Skin Skin Temperature: Warm Skin Moisture: Dry Skin Color: Normal Course - Re-evaluation Re-evalutation: 11/29/18 13:19 Patient presents with UTI symptoms and patient does have a UTI. He does not appear toxic. Vital signs are stable. Abdomen has no evidence of surgical abdominal signs. I think it is prudent to try patient on a course of oral antibiotics and have him rechecked in the office. - Vital Signs Vital signs: Temp Pulse Resp BP Pulse Ox 98.9 F 90 16 128/69 H 100 11/29/18 12:01 11/29/18 12:01 11/29/18 12:01 11/29/18 12:01 11/29/18 12:01 - Laboratory Result Diagrams: 11/29/18 12:24 11/29/18 12:24 Laboratory results interpreted by me: 11/29/18 11/29/18 11/29/18 12:12 12:24 12:24 WBC 19.4 H RDW 14.3 H Lymph % (Auto) 12.8 L Absolute Neuts (auto) 14.7 H Absolute Monos (auto) 1.9 H BUN 6 L AST 13 L Urine Blood SMALL H Ur Leukocyte Esterase LARGE H Discharge - Discharge Clinical Impression: UTI (urinary tract infection) Qualifiers: Urinary tract infection type: acute cystitis Hematuria presence: without hematuria Qualified Code(s): N30.00 - Acute cystitis without hematuria Condition: Stable Disposition: HOME, SELF-CARE Admitting Provider: Sujey (Hospitalist) Instructions: Urinary Tract Infection ([facility]) Additional Instructions: Please call your primary doctor as soon as possible to arrange follow-up Prescriptions: Cefdinir 300 mg PO BID 7 Days #14 capsule Referrals: MARSHA TOLENTINO FNP [Primary Care Provider] - Follow up in 3-5 days
[2018-11-29 13:54] VITALS: BP 131/74
== END 2018-11-29 13:54 | disposition home or self-care (01) ==
LOC: ER 11:47
DX: N30.00 Acute cystitis without hematuria (principal); R30.0 Dysuria; R10.30 Lower abdominal pain, unspecified; R11.0 Nausea; K92.1 Melena
CPT/HCPCS: 36415; 80053; 81001; 83690; 85025; 87086; 87088

== ENCOUNTER 2018-12-27 05:12 | Inpatient (IN) | payer OTHER ==
[2018-12-20 10:05] LABS: ABSOLUTE BASOPHILS # (AUTO) 0.1 10^3/uL (0.0-0.2); ABSOLUTE EOSINOPHILS # (AUTO) 0.4 10^3/uL (0.0-0.6); ABSOLUTE LYMPHOCYTES (AUTO) 2.4 10^3/uL (0.5-4.7); ABSOLUTE MONOCYTES (AUTO) 0.6 10^3/uL (0.1-1.4); ABSOLUTE NEUT (AUTO) 4.6 10^3/uL (1.7-8.2); BASOPHILS % (AUTO) 0.8 % (0-2); EOSINOPHILS % (AUTO) 4.8 % (0-6); HEMATOCRIT 42.3 % (37.9-51.0); HEMOGLOBIN 14.5 g/dL (13.5-17.0); LYMPHOCYTES % (AUTO) 29.5 % (13-45); MEAN CORPUSCULAR HEMOGLOBIN 31.6 pg (27.0-33.4); MEAN CORPUSCULAR HGB CONC 34.3 g/dL (32.0-36.0); MEAN CORPUSCULAR VOLUME 92 fl (80-97); MONOCYTES % (AUTO) 7.4 % (3-13); PLATELET COUNT 352 10^3/uL (150-450); RED CELL DISTRIBUTION WIDTH 14.2 % (11.5-14.0); SEGMENTED NEUTROPHILS % (AUTO) 57.5 % (42-78); TOTAL CELLS COUNTED % (AUTO) 100 %
[2018-12-20 10:28] LABS: ANION GAP 8 (5-19); BLOOD UREA NITROGEN 8 mg/dL (7-20); CALCIUM 9.6 mg/dL (8.4-10.2); CARBON DIOXIDE 28 mmol/L (22-30); CHLORIDE 104 mmol/L (98-107); GLUCOSE 88 mg/dL (75-110); POTASSIUM 4.4 mmol/L (3.6-5.0)
--- NOTE | 2018-12-20 22:46 | EKG REPORT ---
SEVERITY:- NORMAL ECG - SINUS RHYTHM : Confirmed by: Félix Barnes 20-Dec-2018 22:45:45
[~2018-12-27 05:12] MED LIST: CEFAZOLIN SODIUM 1 GM in DEXTROSE 5%-WATER 50 ML IV PRN; DEXAMETHASONE SOD PHOSPHATE INJ 4 MG/1 ML VIAL ONE; GLYCOPYRROLATE 1 MG/5 ML VIAL ONE; KETOROLAC TROMETHAMINE 60 MG/2 ML SDV ONE; LACTATED RINGERS 1000 ML IV PRN; LIDOCAINE 0.5% INJ-PF (5 MG/ML) 50 ML SDV SUBCUT PRN; METRONIDAZOLE 500 MG/NS RTU 500 MG/100 ML RTUPB IV ONE; METRONIDAZOLE 500 MG/NS RTU 500 MG/100 ML RTUPB IV PRN; NEOSTIGMINE METHYLSULFATE 10 MG/10 ML VIAL ONE; ONDANSETRON HCL INJ/PF 4 MG/2 ML SDV ONE; ROCURONIUM BROMIDE INJ 50 MG/5 ML VIAL IV ONE
[2018-12-27] MEDS ORDERED: FENTANYL CITRATE INJ/PF 100 MCG/2 ML AMPUL ONE (07:02)
[2018-12-27] MEDS ORDERED: HYDROMORPHONE HCL INJ/PF 2 MG/ML AMPULE ONE (07:03)
[2018-12-27] MEDS ORDERED: MIDAZOLAM 2 MG/2 ML INJ ONE (07:03)
[2018-12-27] MEDS ORDERED: PROPOFOL INJ 200 MG/20 ML VIAL IV ONE (07:03)
--- NOTE | 2018-12-27 10:46 | Operative Report ---
Nonrecallable Operative Report DATE OF SURGERY: 12/27/18 PREOPERATIVE DIAGNOSIS: Colovesical fistula, diverticulitis POSTOPERATIVE DIAGNOSIS: Colovesical fistula, diverticulitis OPERATION: Laparoscopic assisted sigmoid colectomy appendectomy lysis of adhesions SURGEON: ELVIS WATERS 1ST ROLLER MACHINE OPERATOR: GLENNY VERDUZCO ANESTHESIA: GA TISSUE REMOVED OR ALTERED: Sigmoid colon, appendix COMPLICATIONS: None ESTIMATED BLOOD LOSS: 150 cc INTRAOPERATIVE FINDINGS: see dictation PROCEDURE: Patient was brought to the operating room and awake alert stable condition placed in the operative table supine position induced under general anesthesia intubated he was then placed in a low lithotomy position after appropriate timeout site verification the procedure commenced Varies needle was placed into the umbilicus and the abdomen was insufflated with 6 L of CO2 gas a supraumbilical 10 mm decision was made with a 15 blade and a 10 mm port placed in the abdominal cavity intra-abdominal visualization revealed no evidence of a varies needle or trocar injury 2 left lateral ports were placed a 12 and a 5 and a 5 mm right lateral port was placed all under direct vision. The pelvis was identified there was a large sigmoid mass that was affixed to the posterior portion of the bladder and a number of small bowel loops were fixed to it in the pelvis. This required some dissection to mobilize the small bowel loops away from the sigmoid phlegmon this was done with either Metzenbaum scissors at one point we needed to staple across a small tongue of small bowel that was affixed to the phlegmon with a Endo MELITON stapler with a blue load. This was done and this completely freed up the small bowel we checked the small bowel serosa for any injury or leak and there was none. We then mobilized the small bowel approximately we then turned attention to the sigmoid phlegmon was affixed to the posterior portion of the bladder this was taken down with blunt and sharp dissection using LigaSure device and blunt dissection. Once we were able to do this we mobilized the phlegmon up out of the pelvis and identified the rectum we identified the right and left ureter and preserve those we mobilized the rectum posteriorly with a blunt and sharp dissection and then came across the proximal rectum distal to the sigmoid phlegmon with one firing the Endo MELITON stapler with a blue load. I then took down the white line of Toldt to the mid descending colon with sharp dissection using the LigaSure device making sure we did not injure the left ureter. Once we did this we mobilized the peritoneum off the sigmoid colon on the right side also identifying the right ureter also pre serving this without injury. Once we were able to do this we mobilized the peritoneum and mesentery of the mid descending colon with the LigaSure device to the edge of the colon itself. Once we had the sigmoid colon and descending colon mobilized we then proceeded to make a small incision on the anterior abdominal wall just above the pubic symphysis with a 15 blade we carried our dissection down through subcutaneous tissue with Bovie cautery we open the midline of the rectus for about [address] wound protector. We delivered the sigmoid phlegmon mass through the wound and cleared off the distal descending colon of its mesentery with the Bovie cautery and LigaSure device and then came across it with a pursestring maker. We remove the specimen. We then opened up the end of the distal descending colon placed 3 Allis clamps around it for retraction and incised with the EEA sizers approximately a 29 sizer fit easily into that we therefore opened the 29 mm EEA stapler placed the anvil into the end of the descending colon and tape and tied down the pursestring suture. We returned the descending colon back to the abdominal cavity we eviscerated the small bowel to check for any injuries that occurred when we were dissecting the small bowel off the phlegmon and there were none. We then easily delivered the cecum into the wound and I took down the mesoappendix with the LigaSure device and came across the appendix at the base of the cecum with one firing the MELITON stapler with a blue load for clean flush staple line with no bleeding and and sent the appendix off as a separate specimen. We then returned the colon back to the abdominal cavity and closed the midline incision with a running 0 Vicryl suture in the posterior peritoneum and anteriorly with interrupted #1 Vicryl sutures. We then used the sizing devices passed them in through the rectum from below the easily admitted to the 33 sizer however we used a 29 stapler passed that into the rectum opened it connected to the anvil and the distal descending colon closed and fired creating a coloproctostomy we checked the staple donut holes and they were intact we then placed a bowel clamp across the mid descending colon fill the pelvis up with water and instilled air under pressure through proctoscope in the rectum it dilated the descending colon as well as the rectum and no evidence of any bubbling was noted. We then placed a Herman-Azevedo drain in the pelvis and brought out through a stab wound in the left upper quadrant. I then asked that 1 of the nurses to disconnect the Mcguire catheter from the drainage bag and instill saline into the bladder to distend up the bladder did not find any leak from the area of the colo-vesicle fistula. Nonetheless I left the drain in the pelvis. Once this was all done we removed the ports but closed the 1 cm fascial defects with 0 Vicryl and then closed all skin incisions with standard skin clips which completed the procedure estimated blood loss was 150 cc sponge needle counts were correct x2 the patient was awakened in the operating extubated transferred recovery in stable condition no complications Glenny TAM was present for the entire case for help with wound retraction wound closure
[2018-12-27] MEDS: MORPHINE SULFATE 10 MG/ML INJ IV PRN ×3 (13:20→22:15)
[2018-12-27] MEDS: POTASSI CL 20 MEQ/D5-1/2NS 1L 1,000 ML IV PRN (13:21)
[2018-12-27] MEDS: ACETAMINOPHEN INJ/PF 1000 MG/100 ML SDV IV SCH ×2 (13:21→17:32)
[2018-12-27] MEDS: HEPARIN SOD (PORCINE) 5,000 UNIT/ML 1 ML VIAL SUBCUT SCH (14:21)
[2018-12-27] MEDS: ONDANSETRON HCL INJ/PF 4 MG/2 ML SDV IV PRN ×2 (16:50→21:53)
[2018-12-27] MEDS: FAMOTIDINE INJ/PF 20 MG/2 ML SDV IV SCH (21:53)
[2018-12-28] MEDS: ACETAMINOPHEN INJ/PF 1000 MG/100 ML SDV IV SCH ×5 (00:14→23:04)
[2018-12-28] MEDS: POTASSI CL 20 MEQ/D5-1/2NS 1L 1,000 ML IV PRN ×3 (00:14→23:00)
[2018-12-28] MEDS: ONDANSETRON HCL INJ/PF 4 MG/2 ML SDV IV PRN ×2 (03:05→20:06)
[2018-12-28] MEDS: MORPHINE SULFATE 10 MG/ML INJ IV PRN ×4 (03:05→18:10)
[2018-12-28] MEDS: HEPARIN SOD (PORCINE) 5,000 UNIT/ML 1 ML VIAL SUBCUT SCH ×3 (05:11→21:56)
[2018-12-28 06:23] LABS: ABSOLUTE LYMPHOCYTES (AUTO) 2.2 10^3/uL (0.5-4.7); ABSOLUTE MONOCYTES (AUTO) 1.7 10^3/uL (0.1-1.4); ABSOLUTE NEUT (AUTO) 9.7 10^3/uL (1.7-8.2); BASOPHILS % (AUTO) 0.1 % (0-2); EOSINOPHILS % (AUTO) 0.1 % (0-6); HEMOGLOBIN 8.9 g/dL (13.5-17.0); LYMPHOCYTES % (AUTO) 16.1 % (13-45); MEAN CORPUSCULAR HEMOGLOBIN 31.3 pg (27.0-33.4); MEAN CORPUSCULAR HGB CONC 34.3 g/dL (32.0-36.0); MEAN CORPUSCULAR VOLUME 91 fl (80-97); MONOCYTES % (AUTO) 12.4 % (3-13); PLATELET COUNT 261 10^3/uL (150-450); RED BLOOD COUNT 2.85 10^6/uL (4.35-5.55); RED CELL DISTRIBUTION WIDTH 13.9 % (11.5-14.0); SEGMENTED NEUTROPHILS % (AUTO) 71.3 % (42-78); TOTAL CELLS COUNTED % (AUTO) 100 %; WHITE BLOOD COUNT 13.6 10^3/uL (4.0-10.5)
[2018-12-28 06:42] LABS: ANION GAP 5 (5-19); BLOOD UREA NITROGEN 11 mg/dL (7-20); CALCIUM 7.9 mg/dL (8.4-10.2); CARBON DIOXIDE 23 mmol/L (22-30); CHLORIDE 109 mmol/L (98-107); GLUCOSE 119 mg/dL (75-110); POTASSIUM 4.4 mmol/L (3.6-5.0)
--- NOTE | 2018-12-28 08:36 | PDOC PROGRESS REPORT ---
Subjective Progress Note for:: 12/28/18 Subjective:: feels ok, some incisional pain Reason For Visit: K57.32 DVTRCLI OF LG INT W/O PERFORATION OR ABSCES Physical Exam Vital Signs: Temp Pulse Resp BP Pulse Ox 98.7 F 82 18 141/62 H 98 12/28/18 08:00 12/28/18 08:00 12/28/18 08:00 12/28/18 08:00 12/28/18 08:00 Intake & Output 12/27/18 12/28/18 12/29/18 06:59 06:59 06:59 Intake Total 0 3840 Output Total 910 Balance 0 2930 Weight 57.2 kg General appearance: PRESENT: no acute distress Head exam: PRESENT: normocephalic Eye exam: PRESENT: EOMI Ear exam: PRESENT: TM's normal bilaterally Mouth exam: PRESENT: moist Neck exam: PRESENT: full ROM Respiratory exam: PRESENT: clear to auscultation nicole Cardiovascular exam: PRESENT: RRR Pulses: PRESENT: normal radial pulses, normal femoral pulses Vascular exam: PRESENT: normal capillary refill GI/Abdominal exam: PRESENT: soft Rectal exam: PRESENT: deferred Extremities exam: PRESENT: full ROM Musculoskeletal exam: PRESENT: full ROM Neurological exam: PRESENT: alert, awake, oriented to person, oriented to place Psychiatric exam: PRESENT: appropriate affect Skin exam: PRESENT: dry Results Laboratory Results: 12/28/18 06:09 12/28/18 06:09 12/28/18 12/28/18 06:09 06:09 WBC 13.6 H RBC 2.85 L Hgb 8.9 L Hct 26.0 L MCV 91 MCH 31.3 MCHC 34.3 RDW 13.9 Plt Count 261 Seg Neutrophils % 71.3 Sodium 137.1 Potassium 4.4 Chloride 109 H Carbon Dioxide 23 Anion Gap 5 BUN 11 Creatinine 0.67 Est GFR ( Amer) > 60 Glucose 119 H Calcium 7.9 L Assessment & Plan - Time Time Spent with patient: 25-34 minutes - Plan Summary Plan Summary: pod 1 s/p sigmoid resection for diverticlar abscess iwth colovesicle fistula doing ok kristi clears awating return of bowel function
[2018-12-28] MEDS: FAMOTIDINE INJ/PF 20 MG/2 ML SDV IV SCH ×2 (10:13→22:00)
[2018-12-29] MEDS: MORPHINE SULFATE 10 MG/ML INJ IV PRN (03:30)
[2018-12-29] MEDS: ACETAMINOPHEN INJ/PF 1000 MG/100 ML SDV IV SCH ×3 (05:53→17:03)
[2018-12-29] MEDS: HEPARIN SOD (PORCINE) 5,000 UNIT/ML 1 ML VIAL SUBCUT SCH ×4 (05:54→21:19)
[2018-12-29 06:02] LABS: ABSOLUTE LYMPHOCYTES (AUTO) 1.3 10^3/uL (0.5-4.7); ABSOLUTE MONOCYTES (AUTO) 1.2 10^3/uL (0.1-1.4); ABSOLUTE NEUT (AUTO) 9.1 10^3/uL (1.7-8.2); BASOPHILS % (AUTO) 0.2 % (0-2); EOSINOPHILS % (AUTO) 0.3 % (0-6); HEMOGLOBIN 8.7 g/dL (13.5-17.0); LYMPHOCYTES % (AUTO) 11.5 % (13-45); MEAN CORPUSCULAR HEMOGLOBIN 31.8 pg (27.0-33.4); MEAN CORPUSCULAR HGB CONC 34.8 g/dL (32.0-36.0); MEAN CORPUSCULAR VOLUME 91 fl (80-97); MONOCYTES % (AUTO) 10.2 % (3-13); PLATELET COUNT 272 10^3/uL (150-450); RED BLOOD COUNT 2.74 10^6/uL (4.35-5.55); RED CELL DISTRIBUTION WIDTH 13.7 % (11.5-14.0); SEGMENTED NEUTROPHILS % (AUTO) 77.8 % (42-78); TOTAL CELLS COUNTED % (AUTO) 100 %; WHITE BLOOD COUNT 11.8 10^3/uL (4.0-10.5)
[2018-12-29] MEDS: ONDANSETRON HCL INJ/PF 4 MG/2 ML SDV IV PRN ×2 (06:02→11:04)
[2018-12-29 06:23] LABS: ANION GAP 6 (5-19); BLOOD UREA NITROGEN 9 mg/dL (7-20); CALCIUM 8.7 mg/dL (8.4-10.2); CARBON DIOXIDE 25 mmol/L (22-30); CHLORIDE 108 mmol/L (98-107); GLUCOSE 123 mg/dL (75-110); POTASSIUM 4.5 mmol/L (3.6-5.0)
[2018-12-29] MEDS ORDERED: HYDROMORPHONE HCL INJ/PF 2 MG/ML AMPULE IV PRN (07:35)
--- NOTE | 2018-12-29 07:39 | PDOC PROGRESS REPORT ---
Subjective Progress Note for:: 12/29/18 Subjective:: feels ok, didnt ambulated due to campos. Reason For Visit: K57.32 DVTRCLI OF LG INT W/O PERFORATION OR ABSCES Physical Exam Vital Signs: Temp Pulse Resp BP Pulse Ox 98.0 F 87 16 134/69 H 100 12/29/18 03:15 12/29/18 03:15 12/29/18 03:15 12/29/18 03:15 12/29/18 03:15 Intake & Output 12/28/18 12/29/18 12/30/18 06:59 06:59 06:59 Intake Total 3840 2970 Output Total 910 2300 Balance 2930 670 Weight 57.2 kg 58.2 kg General appearance: PRESENT: no acute distress Head exam: PRESENT: normocephalic Eye exam: PRESENT: EOMI Ear exam: PRESENT: normal external ear exam Mouth exam: PRESENT: moist Neck exam: PRESENT: full ROM Respiratory exam: PRESENT: clear to auscultation nicole Cardiovascular exam: PRESENT: RRR Pulses: PRESENT: normal radial pulses, normal femoral pulses Vascular exam: PRESENT: normal capillary refill GI/Abdominal exam: PRESENT: soft Rectal exam: PRESENT: deferred Extremities exam: PRESENT: full ROM Musculoskeletal exam: PRESENT: full ROM Neurological exam: PRESENT: alert, awake, oriented to person, oriented to place Psychiatric exam: PRESENT: appropriate affect Skin exam: PRESENT: dry Results Laboratory Results: 12/29/18 05:30 12/29/18 05:30 12/29/18 12/29/18 05:30 05:30 WBC 11.8 H RBC 2.74 L Hgb 8.7 L Hct 25.0 L MCV 91 MCH 31.8 MCHC 34.8 RDW 13.7 Plt Count 272 Seg Neutrophils % 77.8 Sodium 138.7 Potassium 4.5 Chloride 108 H Carbon Dioxide 25 Anion Gap 6 BUN 9 Creatinine 0.67 Est GFR ( Amer) > 60 Glucose 123 H Calcium 8.7 Assessment & Plan - Time Time Spent with patient: 25-34 minutes - Plan Summary Plan Summary: change ms to dilaudid due to nausea with ms ambulate cont campos.
[2018-12-29] MEDS: FAMOTIDINE INJ/PF 20 MG/2 ML SDV IV SCH ×2 (09:13→22:26)
[2018-12-29] MEDS: POTASSI CL 20 MEQ/D5-1/2NS 1L 1,000 ML IV PRN ×2 (11:04→21:04)
[2018-12-30] MEDS: ACETAMINOPHEN INJ/PF 1000 MG/100 ML SDV IV SCH ×2 (00:21→06:52)
[2018-12-30 05:02] LABS: ABSOLUTE EOSINOPHILS # (AUTO) 0.2 10^3/uL (0.0-0.6); ABSOLUTE LYMPHOCYTES (AUTO) 1.6 10^3/uL (0.5-4.7); ABSOLUTE NEUT (AUTO) 7.6 10^3/uL (1.7-8.2); BASOPHILS % (AUTO) 0.3 % (0-2); EOSINOPHILS % (AUTO) 1.8 % (0-6); HEMATOCRIT 26.1 % (37.9-51.0); HEMOGLOBIN 8.9 g/dL (13.5-17.0); LYMPHOCYTES % (AUTO) 15.6 % (13-45); MEAN CORPUSCULAR HEMOGLOBIN 31.3 pg (27.0-33.4); MEAN CORPUSCULAR HGB CONC 34.1 g/dL (32.0-36.0); MEAN CORPUSCULAR VOLUME 92 fl (80-97); MONOCYTES % (AUTO) 9.6 % (3-13); PLATELET COUNT 307 10^3/uL (150-450); RED BLOOD COUNT 2.85 10^6/uL (4.35-5.55); SEGMENTED NEUTROPHILS % (AUTO) 72.7 % (42-78); TOTAL CELLS COUNTED % (AUTO) 100 %; WHITE BLOOD COUNT 10.5 10^3/uL (4.0-10.5)
[2018-12-30 05:08] LABS: ANION GAP 8 (5-19); BLOOD UREA NITROGEN 6 mg/dL (7-20); CALCIUM 8.9 mg/dL (8.4-10.2); CARBON DIOXIDE 24 mmol/L (22-30); CHLORIDE 106 mmol/L (98-107); GLUCOSE 119 mg/dL (75-110); POTASSIUM 4.1 mmol/L (3.6-5.0)
[2018-12-30] MEDS: HEPARIN SOD (PORCINE) 5,000 UNIT/ML 1 ML VIAL SUBCUT SCH ×3 (05:21→21:29)
[2018-12-30] MEDS: POTASSI CL 20 MEQ/D5-1/2NS 1L 1,000 ML IV PRN (06:58)
--- NOTE | 2018-12-30 08:02 | PDOC PROGRESS REPORT ---
Subjective Progress Note for:: 12/30/18 Subjective:: feels ok, up in chair Reason For Visit: K57.32 DVTRCLI OF LG INT W/O PERFORATION OR ABSCES Physical Exam Vital Signs: Temp Pulse Resp BP Pulse Ox 98.2 F 85 14 148/101 H 100 12/29/18 19:18 12/29/18 19:18 12/29/18 19:18 12/29/18 19:18 12/29/18 19:18 Intake & Output 12/29/18 12/30/18 12/31/18 06:59 06:59 06:59 Intake Total 2970 3390 Output Total 2300 4865 Balance 670 -1475 Weight 58.2 kg 57.2 kg General appearance: PRESENT: no acute distress Head exam: PRESENT: normocephalic Eye exam: PRESENT: EOMI Ear exam: PRESENT: normal external ear exam Mouth exam: PRESENT: moist Neck exam: PRESENT: full ROM Cardiovascular exam: PRESENT: RRR Pulses: PRESENT: normal radial pulses, normal femoral pulses Vascular exam: PRESENT: pallor GI/Abdominal exam: PRESENT: soft Rectal exam: PRESENT: deferred Gentrourinary exam: PRESENT: indwelling catheter Extremities exam: PRESENT: full ROM Musculoskeletal exam: PRESENT: full ROM Neurological exam: PRESENT: alert, awake, oriented to person, oriented to place Psychiatric exam: PRESENT: appropriate affect Skin exam: PRESENT: dry Results Laboratory Results: 12/30/18 04:02 12/30/18 04:02 12/30/18 12/30/18 04:02 04:02 WBC 10.5 RBC 2.85 L Hgb 8.9 L Hct 26.1 L MCV 92 MCH 31.3 MCHC 34.1 RDW 14.0 Plt Count 307 Seg Neutrophils % 72.7 Sodium 138.1 Potassium 4.1 Chloride 106 Carbon Dioxide 24 Anion Gap 8 BUN 6 L Creatinine 0.63 Est GFR ( Amer) > 60 Glucose 119 H Calcium 8.9 Assessment & Plan - Time Time Spent with patient: 25-34 minutes - Plan Summary Plan Summary: doing well now passing flatus clarissa iwth min op h/h stable wbc wnl will advance to full liquids hep lock iv.
[2018-12-30] MEDS: FAMOTIDINE INJ/PF 20 MG/2 ML SDV IV SCH ×2 (09:26→21:34)
[2018-12-30] MEDS ORDERED: ACETAMINOPHEN 325 MG TABLET ONE (19:47)
[2018-12-30] MEDS: ACETAMINOPHEN 325 MG TABLET PO PRN (21:34)
[2018-12-31] MEDS: ACETAMINOPHEN 325 MG TABLET PO PRN ×3 (03:31→21:13)
[2018-12-31] MEDS: HEPARIN SOD (PORCINE) 5,000 UNIT/ML 1 ML VIAL SUBCUT SCH ×3 (06:18→21:12)
[2018-12-31 06:53] LABS: ABSOLUTE EOSINOPHILS # (AUTO) 0.2 10^3/uL (0.0-0.6); ABSOLUTE LYMPHOCYTES (AUTO) 1.6 10^3/uL (0.5-4.7); ABSOLUTE MONOCYTES (AUTO) 0.9 10^3/uL (0.1-1.4); ABSOLUTE NEUT (AUTO) 6.5 10^3/uL (1.7-8.2); BASOPHILS % (AUTO) 0.5 % (0-2); EOSINOPHILS % (AUTO) 2.5 % (0-6); HEMATOCRIT 28.6 % (37.9-51.0); LYMPHOCYTES % (AUTO) 17.4 % (13-45); MEAN CORPUSCULAR HEMOGLOBIN 31.9 pg (27.0-33.4); MEAN CORPUSCULAR HGB CONC 35.1 g/dL (32.0-36.0); MEAN CORPUSCULAR VOLUME 91 fl (80-97); MONOCYTES % (AUTO) 9.5 % (3-13); PLATELET COUNT 439 10^3/uL (150-450); RED BLOOD COUNT 3.15 10^6/uL (4.35-5.55); RED CELL DISTRIBUTION WIDTH 13.5 % (11.5-14.0); SEGMENTED NEUTROPHILS % (AUTO) 70.1 % (42-78); TOTAL CELLS COUNTED % (AUTO) 100 %; WHITE BLOOD COUNT 9.2 10^3/uL (4.0-10.5)
[2018-12-31 07:20] LABS: ANION GAP 12 (5-19); BLOOD UREA NITROGEN 10 mg/dL (7-20); CALCIUM 9.3 mg/dL (8.4-10.2); CARBON DIOXIDE 23 mmol/L (22-30); CHLORIDE 103 mmol/L (98-107); GLUCOSE 101 mg/dL (75-110); POTASSIUM 4.5 mmol/L (3.6-5.0)
--- NOTE | 2018-12-31 08:42 | PDOC PROGRESS REPORT ---
Subjective Progress Note for:: 12/31/18 Subjective:: had some cramping after full liquids relieved with passing flatus Reason For Visit: K57.32 DVTRCLI OF LG INT W/O PERFORATION OR ABSCES Physical Exam Vital Signs: Temp Pulse Resp BP Pulse Ox 97.7 F 99 18 134/68 H 100 12/31/18 07:47 12/31/18 07:47 12/31/18 07:47 12/31/18 07:47 12/31/18 07:47 Intake & Output 12/30/18 12/31/18 01/01/19 06:59 06:59 06:59 Intake Total 3390 525 Output Total 4865 3540 Balance -8262 -5057 Weight 57.2 kg 56.8 kg General appearance: PRESENT: no acute distress Head exam: PRESENT: normocephalic Eye exam: PRESENT: EOMI Neck exam: PRESENT: full ROM Respiratory exam: PRESENT: clear to auscultation nicole Cardiovascular exam: PRESENT: RRR Pulses: PRESENT: normal radial pulses, normal femoral pulses GI/Abdominal exam: PRESENT: soft Rectal exam: PRESENT: deferred Extremities exam: PRESENT: full ROM Musculoskeletal exam: PRESENT: full ROM Neurological exam: PRESENT: alert, awake, oriented to person, oriented to place Psychiatric exam: PRESENT: appropriate affect Skin exam: PRESENT: dry Results Laboratory Results: 12/31/18 06:29 12/31/18 06:29 12/31/18 12/31/18 06:29 06:29 WBC 9.2 RBC 3.15 L Hgb 10.0 L Hct 28.6 L MCV 91 MCH 31.9 MCHC 35.1 RDW 13.5 Plt Count 439 Seg Neutrophils % 70.1 Sodium 138.2 Potassium 4.5 Chloride 103 Carbon Dioxide 23 Anion Gap 12 BUN 10 Creatinine 0.68 Est GFR ( Amer) > 60 Glucose 101 Calcium 9.3 Assessment & Plan - Time Time Spent with patient: 15-24 minutes - Plan Summary Plan Summary: cont full liqud diet today awaing return of bowel function will decrease dilaudid to 1mg/ 2-3 hrs for pain
[2018-12-31] MEDS: FAMOTIDINE INJ/PF 20 MG/2 ML SDV IV SCH ×2 (09:07→21:12)
[2018-12-31] MEDS ORDERED: HYDROMORPHONE HCL INJ/PF 2 MG/ML AMPULE IV PRN (14:00)
[2019-01-01] MEDS: ONDANSETRON HCL INJ/PF 4 MG/2 ML SDV IV PRN ×3 (03:32→21:31)
[2019-01-01] MEDS: HEPARIN SOD (PORCINE) 5,000 UNIT/ML 1 ML VIAL SUBCUT SCH ×3 (05:25→21:11)
[2019-01-01] MEDS: ACETAMINOPHEN 325 MG TABLET PO PRN ×3 (06:12→23:46)
--- NOTE | 2019-01-01 07:36 | PDOC PROGRESS REPORT ---
Subjective Progress Note for:: 01/01/19 Subjective:: angry. Reason For Visit: K57.32 DVTRCLI OF LG INT W/O PERFORATION OR ABSCES Physical Exam Vital Signs: Temp Pulse Resp BP Pulse Ox 98.2 F 92 20 121/62 100 01/01/19 04:20 01/01/19 04:20 01/01/19 04:20 01/01/19 04:20 01/01/19 04:20 Intake & Output 12/31/18 01/01/19 01/02/19 06:59 06:59 06:59 Intake Total 525 840 Output Total 3260 1905 Balance -0285 -1064 Weight 56.8 kg 55.4 kg General appearance: PRESENT: no acute distress Head exam: PRESENT: normocephalic Eye exam: PRESENT: EOMI Mouth exam: PRESENT: moist Neck exam: PRESENT: full ROM Respiratory exam: PRESENT: clear to auscultation nicole Cardiovascular exam: PRESENT: RRR Pulses: PRESENT: normal radial pulses, normal femoral pulses GI/Abdominal exam: PRESENT: soft Gentrourinary exam: PRESENT: indwelling catheter Extremities exam: PRESENT: full ROM Musculoskeletal exam: PRESENT: full ROM Neurological exam: PRESENT: alert, awake, oriented to person, oriented to place, oriented to time Psychiatric exam: PRESENT: anxious Skin exam: PRESENT: dry Results Laboratory Results: 12/31/18 06:29 12/31/18 06:29 Assessment & Plan - Time Time Spent with patient: 25-34 minutes - Plan Summary Plan Summary: passed small bm yesterdy c/o campos, has had some leak around campos, irrigated this am without sediment or clot abd soft, clarissa serous plan advance diet home tomorrow or thurs.
[2019-01-01 07:38] LABS: ABSOLUTE BASOPHILS # (AUTO) 0.1 10^3/uL (0.0-0.2); ABSOLUTE EOSINOPHILS # (AUTO) 0.3 10^3/uL (0.0-0.6); ABSOLUTE LYMPHOCYTES (AUTO) 2.5 10^3/uL (0.5-4.7); ABSOLUTE MONOCYTES (AUTO) 0.9 10^3/uL (0.1-1.4); ABSOLUTE NEUT (AUTO) 6.4 10^3/uL (1.7-8.2); BASOPHILS % (AUTO) 0.5 % (0-2); EOSINOPHILS % (AUTO) 3.4 % (0-6); HEMATOCRIT 31.1 % (37.9-51.0); HEMOGLOBIN 10.8 g/dL (13.5-17.0); LYMPHOCYTES % (AUTO) 24.3 % (13-45); MEAN CORPUSCULAR HGB CONC 34.8 g/dL (32.0-36.0); MEAN CORPUSCULAR VOLUME 92 fl (80-97); MONOCYTES % (AUTO) 8.6 % (3-13); PLATELET COUNT 542 10^3/uL (150-450); RED BLOOD COUNT 3.38 10^6/uL (4.35-5.55); RED CELL DISTRIBUTION WIDTH 13.5 % (11.5-14.0); SEGMENTED NEUTROPHILS % (AUTO) 63.2 % (42-78); TOTAL CELLS COUNTED % (AUTO) 100 %; WHITE BLOOD COUNT 10.1 10^3/uL (4.0-10.5)
[2019-01-01 08:10] LABS: ANION GAP 14 (5-19); BLOOD UREA NITROGEN 14 mg/dL (7-20); CALCIUM 9.3 mg/dL (8.4-10.2); CARBON DIOXIDE 21 mmol/L (22-30); CHLORIDE 100 mmol/L (98-107); GLUCOSE 94 mg/dL (75-110); POTASSIUM 4.4 mmol/L (3.6-5.0)
[2019-01-01] MEDS: FAMOTIDINE INJ/PF 20 MG/2 ML SDV IV SCH ×2 (09:41→21:22)
[2019-01-02] MEDS: HEPARIN SOD (PORCINE) 5,000 UNIT/ML 1 ML VIAL SUBCUT SCH ×3 (05:33→22:28)
[2019-01-02] MEDS: ACETAMINOPHEN 325 MG TABLET PO PRN ×3 (06:27→18:20)
[2019-01-02 06:52] LABS: ABSOLUTE BASOPHILS # (AUTO) 0.1 10^3/uL (0.0-0.2); ABSOLUTE EOSINOPHILS # (AUTO) 0.4 10^3/uL (0.0-0.6); ABSOLUTE LYMPHOCYTES (AUTO) 2.1 10^3/uL (0.5-4.7); ABSOLUTE MONOCYTES (AUTO) 1.2 10^3/uL (0.1-1.4); ABSOLUTE NEUT (AUTO) 6.7 10^3/uL (1.7-8.2); BASOPHILS % (AUTO) 0.6 % (0-2); EOSINOPHILS % (AUTO) 4.1 % (0-6); HEMATOCRIT 30.5 % (37.9-51.0); HEMOGLOBIN 10.6 g/dL (13.5-17.0); MEAN CORPUSCULAR HEMOGLOBIN 31.6 pg (27.0-33.4); MEAN CORPUSCULAR HGB CONC 34.8 g/dL (32.0-36.0); MEAN CORPUSCULAR VOLUME 91 fl (80-97); MONOCYTES % (AUTO) 11.2 % (3-13); PLATELET COUNT 574 10^3/uL (150-450); RED BLOOD COUNT 3.36 10^6/uL (4.35-5.55); RED CELL DISTRIBUTION WIDTH 13.6 % (11.5-14.0); SEGMENTED NEUTROPHILS % (AUTO) 64.1 % (42-78); TOTAL CELLS COUNTED % (AUTO) 100 %; WHITE BLOOD COUNT 10.5 10^3/uL (4.0-10.5)
[2019-01-02 07:10] LABS: ANION GAP 15 (5-19); BLOOD UREA NITROGEN 14 mg/dL (7-20); CALCIUM 9.4 mg/dL (8.4-10.2); CARBON DIOXIDE 20 mmol/L (22-30); CHLORIDE 103 mmol/L (98-107); GLUCOSE 108 mg/dL (75-110); POTASSIUM 4.1 mmol/L (3.6-5.0)
--- NOTE | 2019-01-02 08:55 | PDOC PROGRESS REPORT ---
Subjective Progress Note for:: 01/02/19 Subjective:: still c/o urine around catheter passing stool kristi reg diet Reason For Visit: K57.32 DVTRCLI OF LG INT W/O PERFORATION OR ABSCES Physical Exam Vital Signs: Temp Pulse Resp BP Pulse Ox 98.4 F 83 14 123/67 100 01/02/19 03:15 01/02/19 03:15 01/02/19 03:15 01/02/19 03:15 01/02/19 03:15 Intake & Output 01/01/19 01/02/19 01/03/19 06:59 06:59 06:59 Intake Total 840 650 Output Total 1905 1070 Balance -1065 -420 Weight 55.4 kg 56.2 kg General appearance: PRESENT: no acute distress, mild distress Head exam: PRESENT: normocephalic Eye exam: PRESENT: EOMI Mouth exam: PRESENT: moist Neck exam: PRESENT: full ROM Respiratory exam: PRESENT: clear to auscultation nicole Cardiovascular exam: PRESENT: RRR Pulses: PRESENT: normal femoral pulses Vascular exam: PRESENT: normal capillary refill GI/Abdominal exam: PRESENT: soft Rectal exam: PRESENT: deferred Gentrourinary exam: PRESENT: indwelling catheter Extremities exam: PRESENT: full ROM Musculoskeletal exam: PRESENT: full ROM Neurological exam: PRESENT: alert, awake, oriented to person, oriented to place Psychiatric exam: PRESENT: appropriate affect Skin exam: PRESENT: dry Results Laboratory Results: 01/02/19 06:04 01/02/19 06:04 01/02/19 01/02/19 06:04 06:04 WBC 10.5 RBC 3.36 L Hgb 10.6 L Hct 30.5 L MCV 91 MCH 31.6 MCHC 34.8 RDW 13.6 Plt Count 574 H Seg Neutrophils % 64.1 Sodium 138.2 Potassium 4.1 Chloride 103 Carbon Dioxide 20 L Anion Gap 15 BUN 14 Creatinine 0.58 Est GFR ( Amer) > 60 Glucose 108 Calcium 9.4 Assessment & Plan - Time Time Spent with patient: 15-24 minutes - Plan Summary Plan Summary: cont current rx will apply leg bag, home monday.
[2019-01-02] MEDS: FAMOTIDINE INJ/PF 20 MG/2 ML SDV IV SCH ×2 (10:13→22:28)
[2019-01-02] MEDS: ONDANSETRON HCL INJ/PF 4 MG/2 ML SDV IV PRN (11:21)
[2019-01-03] MEDS: ACETAMINOPHEN 325 MG TABLET PO PRN ×4 (00:56→21:45)
[2019-01-03] MEDS: HEPARIN SOD (PORCINE) 5,000 UNIT/ML 1 ML VIAL SUBCUT SCH ×3 (06:00→21:19)
[2019-01-03 06:05] LABS: ABSOLUTE BASOPHILS # (AUTO) 0.1 10^3/uL (0.0-0.2); ABSOLUTE EOSINOPHILS # (AUTO) 0.4 10^3/uL (0.0-0.6); ABSOLUTE LYMPHOCYTES (AUTO) 3.3 10^3/uL (0.5-4.7); ABSOLUTE MONOCYTES (AUTO) 0.9 10^3/uL (0.1-1.4); ABSOLUTE NEUT (AUTO) 5.1 10^3/uL (1.7-8.2); BASOPHILS % (AUTO) 0.8 % (0-2); EOSINOPHILS % (AUTO) 4.3 % (0-6); HEMOGLOBIN 10.4 g/dL (13.5-17.0); LYMPHOCYTES % (AUTO) 33.6 % (13-45); MEAN CORPUSCULAR HEMOGLOBIN 31.5 pg (27.0-33.4); MEAN CORPUSCULAR HGB CONC 34.9 g/dL (32.0-36.0); MEAN CORPUSCULAR VOLUME 90 fl (80-97); MONOCYTES % (AUTO) 8.9 % (3-13); PLATELET COUNT 637 10^3/uL (150-450); RED BLOOD COUNT 3.31 10^6/uL (4.35-5.55); RED CELL DISTRIBUTION WIDTH 13.6 % (11.5-14.0); SEGMENTED NEUTROPHILS % (AUTO) 52.4 % (42-78); TOTAL CELLS COUNTED % (AUTO) 100 %; WHITE BLOOD COUNT 9.8 10^3/uL (4.0-10.5)
[2019-01-03 06:27] LABS: ANION GAP 10 (5-19); BLOOD UREA NITROGEN 12 mg/dL (7-20); CARBON DIOXIDE 25 mmol/L (22-30); CHLORIDE 101 mmol/L (98-107); GLUCOSE 99 mg/dL (75-110); POTASSIUM 3.9 mmol/L (3.6-5.0)
--- NOTE | 2019-01-03 08:52 | PDOC PROGRESS REPORT ---
Subjective Progress Note for:: 01/03/19 Subjective:: feels well, passing stool Reason For Visit: K57.32 DVTRCLI OF LG INT W/O PERFORATION OR ABSCES Physical Exam Vital Signs: Temp Pulse Resp BP Pulse Ox 98.4 F 87 14 125/70 100 01/02/19 23:11 01/02/19 23:11 01/02/19 23:11 01/02/19 23:11 01/02/19 23:11 Intake & Output 01/02/19 01/03/19 01/04/19 06:59 06:59 06:59 Intake Total 650 750 Output Total 1070 665 Balance -420 85 Weight 56.2 kg 56.4 kg General appearance: PRESENT: no acute distress Head exam: PRESENT: normocephalic Eye exam: PRESENT: EOMI Mouth exam: PRESENT: moist Neck exam: PRESENT: full ROM Respiratory exam: PRESENT: clear to auscultation nicole Cardiovascular exam: PRESENT: RRR Pulses: PRESENT: normal radial pulses, normal femoral pulses Vascular exam: PRESENT: normal capillary refill GI/Abdominal exam: PRESENT: soft Rectal exam: PRESENT: deferred Gentrourinary exam: PRESENT: indwelling catheter Extremities exam: PRESENT: full ROM Neurological exam: PRESENT: alert, awake, oriented to person, oriented to place, oriented to time Psychiatric exam: PRESENT: appropriate affect Skin exam: PRESENT: dry Results Laboratory Results: 01/03/19 05:22 01/03/19 05:22 01/03/19 01/03/19 05:22 05:22 WBC 9.8 RBC 3.31 L Hgb 10.4 L Hct 30.0 L MCV 90 MCH 31.5 MCHC 34.9 RDW 13.6 Plt Count 637 H Seg Neutrophils % 52.4 Sodium 136.4 L Potassium 3.9 Chloride 101 Carbon Dioxide 25 Anion Gap 10 BUN 12 Creatinine 0.66 Est GFR ( Amer) > 60 Glucose 99 Calcium 9.0 Assessment & Plan - Time Time Spent with patient: 25-34 minutes - Plan Summary Plan Summary: doing well min clarissa op will dc campos today if no increase in clarissa op, will dc clarissa and home tomorrow.
[2019-01-03] MEDS: FAMOTIDINE INJ/PF 20 MG/2 ML SDV IV SCH ×2 (10:06→21:41)
[2019-01-04] MEDS: HEPARIN SOD (PORCINE) 5,000 UNIT/ML 1 ML VIAL SUBCUT SCH (05:07)
[2019-01-04] MEDS: ACETAMINOPHEN 325 MG TABLET PO PRN (06:41)
--- NOTE | 2019-01-04 08:14 | PDOC DISCHARGE SUMMARY ---
General - Admit/Disc Date/PCP Admission Date/Primary Care Provider: 12/27/18 05:12 DON SQUIRES PA-C Discharge Date: 01/04/19 - Discharge Diagnosis Final Diagnosis: diverticulitis with colovesicle fistula - Assessment Summary: pt underwent an elective laparoscopic signoid colectomy with takedown of colovesicle fistula kristi well had a benign post op course had return of bowel function in approx 5 days started on diet which was advanced to reg by time of discharge campos cath removed on pod 8 and clarissa removed following day iwth min op now kristi reg diet no post op complications will dc home today will f/u in 1-2 wks. - Additional Information Discharge Diet: As Tolerated Discharge Activity: Activity As Tolerated, No Lifting Over 10 Pounds - needs f/u with me in 1-2 wks. Referrals: ELVIS WATERS MD [ACTIVE STAFF] - DON SQUIRES PA-C [Primary Care Provider] - Home Medications: No Home Medications 12/27/18 History of Present Illiness History of Present Illness: ELKIN ADAMS is a 58 year old male Physical Exam Vital Signs: Temp Pulse Resp BP Pulse Ox 97.7 F 86 16 113/64 100 01/04/19 03:54 01/04/19 03:54 01/04/19 03:54 01/04/19 03:54 01/04/19 03:54 Intake & Output 01/03/19 01/04/19 01/05/19 06:59 06:59 06:59 Intake Total 750 1760 Output Total 665 800 Balance 85 960 Weight 56.4 kg 54.7 kg Results Laboratory Results: WBC 9.8 10^3/uL (4.0-10.5) 01/03/19 05:22 RBC 3.31 10^6/uL (4.35-5.55) L 01/03/19 05:22 Hgb 10.4 g/dL (13.5-17.0) L 01/03/19 05:22 Hct 30.0 % (37.9-51.0) L 01/03/19 05:22 MCV 90 fl (80-97) 01/03/19 05:22 MCH 31.5 pg (27.0-33.4) 01/03/19 05:22 MCHC 34.9 g/dL (32.0-36.0) 01/03/19 05:22 RDW 13.6 % (11.5-14.0) 01/03/19 05:22 Plt Count 637 10^3/uL (150-450) H 01/03/19 05:22 Lymph % (Auto) 33.6 % (13-45) 01/03/19 05:22 Lynn % (Auto) 8.9 % (3-13) 01/03/19 05:22 Eos % (Auto) 4.3 % (0-6) 01/03/19 05:22 Baso % (Auto) 0.8 % (0-2) 01/03/19 05:22 Absolute Neuts (auto) 5.1 10^3/uL (1.7-8.2) 01/03/19 05:22 Absolute Lymphs (auto) 3.3 10^3/uL (0.5-4.7) 01/03/19 05:22 Absolute Monos (auto) 0.9 10^3/uL (0.1-1.4) 01/03/19 05:22 Absolute Eos (auto) 0.4 10^3/uL (0.0-0.6) 01/03/19 05:22 Absolute Basos (auto) 0.1 10^3/uL (0.0-0.2) 01/03/19 05:22 Seg Neutrophils % 52.4 % (42-78) 01/03/19 05:22 Sodium 136.4 mmol/L (137-145) L 01/03/19 05:22 Potassium 3.9 mmol/L (3.6-5.0) 01/03/19 05:22 Chloride 101 mmol/L (98-107) 01/03/19 05:22 Carbon Dioxide 25 mmol/L (22-30) 01/03/19 05:22 Anion Gap 10 (5-19) 01/03/19 05:22 BUN 12 mg/dL (7-20) 01/03/19 05:22 Creatinine 0.66 mg/dL (0.52-1.25) 01/03/19 05:22 Est GFR ( Amer) > 60 (>60) 01/03/19 05:22 Est GFR (MDRD) Non-Af > 60 (>60) 01/03/19 05:22 Glucose 99 mg/dL (75-110) 01/03/19 05:22 Calcium 9.0 mg/dL (8.4-10.2) 01/03/19 05:22 Blood Type B POSITIVE 12/27/18 07:30 Antibody Screen NEGATIVE 12/27/18 07:30
[2019-01-04 11:36] VITALS: BP 137/76
== END 2019-01-04 11:58 | disposition home or self-care (01) | DRG 330 ==
LOC: INOR 05:12 → 3S 12:56
PROVIDERS: ADMIT Surgery; ATTEND Surgery
PROC: 0DQP0ZZ Repair Rectum, Open Approach (ICD-10-PCS; 2018-12-27)
PROC: 0DNM4ZZ Release Descending Colon, Percutaneous Endoscopic Approach (ICD-10-PCS; 2018-12-27)
PROC: 0DTJ4ZZ Resection of Appendix, Percutaneous Endoscopic Approach (ICD-10-PCS; 2018-12-27)
PROC: 0DTN4ZZ Resection of Sigmoid Colon, Percutaneous Endoscopic Approach (ICD-10-PCS; principal; 2018-12-27 07:30)
DX: K57.32 Diverticulitis of large intestine without perforation or abscess without bleeding (principal); N32.1 Vesicointestinal fistula
CPT/HCPCS: 36415; 80048; 840; 85025; 86850; 86900; 86901; 88304; 88307; 93005; 93010; 94799; J0131; J0690; J1100; J1170; J1644; J1885; J2250; J2270; J2405; J2704; J2710; J3010; J3480; J3490; J7060; S0028

== ENCOUNTER 2019-03-15 08:18 | Emergency (ER) | payer OTHER ==
[2019-03-15 09:09] LABS: APPEARANCE,URINE CLEAR; BILIRUBIN,URINE NEGATIVE (NEGATIVE); COLOR,URINE COLORLESS; GLUCOSE, URINE NEGATIVE (NEGATIVE); KETONES,URINE NEGATIVE (NEGATIVE); PROTEIN,URINE NEGATIVE (NEGATIVE); URINE SPECIFIC GRAVITY 1.001; UROBILINOGEN,URINE NEGATIVE mg/dL (<2.0)
--- NOTE | 2019-03-15 10:43 | ER Document Report ---
ED General - General Chief Complaint: Back Pain Stated Complaint: BACK PAIN Time Seen by Provider: 03/15/19 10:22 Primary Care Provider: DON SQUIRES PA-C [Primary Care Provider] - Follow up in 3-5 days Notes: Patient is a 58-year-old male who presents to the emergency department with a chief complaint of left lower back and abdominal pain. He states his symptoms started yesterday. Patient states that he recently had a bowel resection with an appendectomy this past December. He denies any nausea, vomiting, or diarrhea. Patient also had a small abscess in his bowels at that time of surgery. TRAVEL OUTSIDE OF THE [place] IN LAST 30 DAYS: No - Related Data Allergies/Adverse Reactions: No Known Allergies Allergy (Verified 10/23/18 16:29) Past Medical History - Social History Smoking Status: Never Smoker Frequency of alcohol use: None Drug Abuse: None Family History: CAD, Hypertension Patient has suicidal ideation: No Patient has homicidal ideation: No - Past Medical History Cardiac Medical History: Pulmonary Medical History: Neurological Medical History: Renal/ Medical History: Denies: Hx Benign Prostatic Hyperplasia, Hx End Stage Renal Disease, Hx Kidney Stones, Hx Peritoneal Dialysis GI Medical History: Reports: Hx Diverticulitis. Denies: Hx Crohn's Disease, Hx Gastroesophageal Reflux Disease, Hx Hiatal Hernia, Hx Irritable Bowel, Hx Liver Failure, Hx Pancreatitis, Hx Ulcer Musculoskeletal Medical History: Past Surgical History: Reports: Hx Appendectomy, Hx Inguinal Hernia. Denies: Hx Bowel Surgery, Hx Cholecystectomy, Hx Colostomy, Hx Coronary Artery Bypass Graft, Hx Gastric Bypass Surgery, Hx Herniorrhaphy, Hx Pacemaker, Hx T onsillectomy - Immunizations Hx Diphtheria, Pertussis, Tetanus Vaccination: No Review of Systems - Review of Systems Notes: REVIEW OF SYSTEMS: CONSTITUTIONAL : Denies recent illness. Denies recent unintentional weight loss. Denies fever, chills, or sweats. EENT: Denies eye, ear, throat, or mouth pain, discharge, or symptoms. Denies nasal or sinus congestion. CARDIOVASCULAR: Denies chest pain. RESPIRATORY: Denies shortness of breath, cough, congestion, difficulty breathing, or wheezing. GASTROINTESTINAL: See HPI. GENITOURINARY: Denies difficulty urinating, burning, blood in urine, urgency or frequency. MUSCULOSKELETAL: See HPI. Denies joint pain or swelling. SKIN: Denies rash, itchiness, or lesions HEMATOLOGIC : Denies easy bruising or bleeding. LYMPHATIC: Denies swollen, painful, enlarged glands. NEUROLOGICAL: Denies no numbness or tingling denies weakness. Denies headache. Denies altered mental status. Denies alteration in speech. PSYCHIATRIC: Denies stress, anxiety, alteration in sleep patterns, or depression. All other systems reviewed and negative. Physical Exam - Vital signs Vitals: Temp Pulse Resp BP Pulse Ox 98.2 F 94 20 125/71 98 03/15/19 08:21 03/15/19 08:21 03/15/19 08:21 03/15/19 08:21 03/15/19 08:21 - Notes Notes: PHYSICAL EXAMINATION: GENERAL: Appears well, healthy, well-nourished, no acute distress. HEAD: Normocephalic, atraumatic. EYES: PERRL, conjunctiva normal, all extraocular movements intact, sclera nonicteric ENT: Moist mucous membranes. NECK: Supple, no noticeable swelling, redness, rash. Normal range of motion. LUNGS: Equal breath sounds bilaterally and clear to auscultation. No wheezes rales or rhonchi. CARDIOVASCULAR: S1-S2, regular rate, regular rhythm. Radial pulses 2+, normal. ABDOMEN: Normoactive bowel sounds. Soft, tender left lower quadrant, no guarding, no rebound tenderness, and no masses palpated. EXTREMITIES: Normal strength and range of motion, no pitting or edema. No cyanosis. NEUROLOGICAL: Moves all extremities upon command. Strength 5/5 in all extremities. PSYCH: Normal mood, normal affect. SKIN: Warm, dry. No rash, lesions, ulcerations noted. Normal skin turgor. BACK: Very mild left flank pain. Course - Re-evaluation Re-evalutation: 03/15/19 14:55 Hematology is unremarkable. Chemistries are also unremarkable. Urinalysis is normal. Patient CT of the abdomen pelvis is negative for any acute findings. I suspect that this is more a musculoskeletal issue than a gastrointestinal or issue. Patient will be given Robaxin. He will follow-up with his primary care provider. He is in agreement with this plan. Follow-up precautions were given. Verbal discharge instructions were given to the patient. They verbalized understanding. They are stable for discharge. - Vital Signs Vital signs: Temp Pulse Resp BP Pulse Ox 97.9 F 65 20 120/70 100 03/15/19 11:17 03/15/19 11:17 03/15/19 08:21 03/15/19 11:17 03/15/19 11:17 - Laboratory Result Diagrams: 03/15/19 10:03 03/15/19 10:03 Laboratory results interpreted by me: 03/15/19 10:03 RDW 15.4 H Discharge - Discharge Clinical Impression: Back pain Qualifiers: Back pain location: low back pain Chronicity: acute Back pain laterality: left Sciatica presence: without sciatica Qualified Code(s): M54.5 - Low back pain Abdominal pain Qualifiers: Abdominal location: lower abdomen, unspecified Qualified Code(s): R10.30 - Lower abdominal pain, unspecified Condition: Stable Disposition: HOME, SELF-CARE Additional Instructions: You were seen today in the emergency department for back pain and abdominal pain. Your CT shows that there is no abnormality in your abdomen. Please continue to take Tylenol 1000 mg every 6 hours as needed for your pain. You are also being sent home with Robaxin, muscle relaxer to help with the pain in your back. Muscle pain is the most likely cause of your problem. Make sure you use good body mechanics independent with your legs. Follow-up with your primary care provider. Prescriptions: Methocarbamol [Robaxin 500 mg Tablet] 500 mg PO QHS PRN #12 tablet PRN Reason: Referrals: DON SQUIRES PA-C [Primary Care Provider] - Follow up in 3-5 days
[2019-03-15 11:13] LABS: ABSOLUTE BASOPHILS # (AUTO) 0.1 10^3/uL (0.0-0.2); ABSOLUTE EOSINOPHILS # (AUTO) 0.3 10^3/uL (0.0-0.6); ABSOLUTE LYMPHOCYTES (AUTO) 2.4 10^3/uL (0.5-4.7); ABSOLUTE MONOCYTES (AUTO) 0.6 10^3/uL (0.1-1.4); ABSOLUTE NEUT (AUTO) 3.9 10^3/uL (1.7-8.2); BASOPHILS % (AUTO) 1.1 % (0-2); EOSINOPHILS % (AUTO) 3.6 % (0-6); HEMATOCRIT 42.6 % (37.9-51.0); HEMOGLOBIN 14.2 g/dL (13.5-17.0); LYMPHOCYTES % (AUTO) 33.6 % (13-45); MEAN CORPUSCULAR HEMOGLOBIN 28.4 pg (27.0-33.4); MEAN CORPUSCULAR HGB CONC 33.4 g/dL (32.0-36.0); MEAN CORPUSCULAR VOLUME 85 fl (80-97); MONOCYTES % (AUTO) 7.8 % (3-13); PLATELET COUNT 415 10^3/uL (150-450); RED CELL DISTRIBUTION WIDTH 15.4 % (11.5-14.0); SEGMENTED NEUTROPHILS % (AUTO) 53.9 % (42-78); TOTAL CELLS COUNTED % (AUTO) 100 %; WHITE BLOOD COUNT 7.1 10^3/uL (4.0-10.5)
[2019-03-15 11:40] LABS: ALBUMIN 4.4 g/dL (3.5-5.0); ALKALINE PHOSPHATASE 73 U/L (38-126); ANION GAP 5 (5-19); ASPARTATE AMINO TRANSFERASE 18 U/L (17-59); BILIRUBIN,TOTAL 0.2 mg/dL (0.2-1.3); BLOOD UREA NITROGEN 12 mg/dL (7-20); CALCIUM 9.4 mg/dL (8.4-10.2); CARBON DIOXIDE 27 mmol/L (22-30); CHLORIDE 107 mmol/L (98-107); GLUCOSE 100 mg/dL (75-110); POTASSIUM 4.6 mmol/L (3.6-5.0); TOTAL PROTEIN 7.4 g/dL (6.3-8.2)
[2019-03-15] MEDS ORDERED: MORPHINE SULFATE 10 MG/ML INJ IV ONE (13:05)
[2019-03-15] MEDS ORDERED: NORMAL SALINE 1000 ML 1,000 ML IV ONE (13:05)
--- NOTE | 2019-03-15 14:15 | RADIOLOGY REPORT (SQ) ---
EXAM DESCRIPTION: CT ABD/PELVIS WITH IV ORAL COMPLETED DATE/TIME: 03/15/2019 1:57 pm REASON FOR STUDY: low back/abd pain COMPARISON: CT of the abdomen pelvis with contrast on 10/23/2018 TECHNIQUE: CT scan of the abdomen and pelvis performed using helical scanning technique with dynamic intravenous contrast injection. No oral contrast. Images reviewed with lung, soft tissue, and bone windows. Reconstructed coronal and sagittal MPR images reviewed. Delayed images for evaluation of the urinary system also acquired. All images stored on PACS. All CT scanners at this facility use dose modulation, iterative reconstruction, and/or weight based d osing when appropriate to reduce radiation dose to as low as reasonably achievable (ALARA). [facility]: Dose Right [facility]: CareDose [facility]: Dose Right [facility]: Teradose 4D [facility]: [id number] CONTRAST TYPE AND DOSE: Contrast/concentration: Isovue 350.00 mg/ml; Total Contrast Delivered: 69.0 ml; Total Saline Delivered: 65.0 ml RENAL FUNCTION: Creatinine 0.64 milligrams/deciliter RADIATION DOSE: CT Rad equipment meets quality standard of care and radiation dose reduction techniq ues were employed. CTDIvol: 4.8 - 5.3 mGy. DLP: 498 mGy-cm.. LIMITATIONS: None. FINDINGS: LOWER CHEST: Stable perifissural and subpleural nodules in the lower lobes that measure up to 7 mm. There is no basilar consolidation or pleural effusion. There is no cardiomegaly or perica rdial effusion. LIVER: The morphology of the liver is non cirrhotic. The portal veins are patent. There is no hepat ic mass. SPLEEN: No splenomegaly or splenic mass. PANCREAS: No abnormality of the pancreas. GALLBLADDER: No abnormality that is apparent on CT. ADRENAL GLANDS: No mass or asymmetry. RIGHT KIDNEY AND URETER: No solid mass, hydronephrosis, nephrolithiasis, hydroureter or ureterolithia sis LEFT KIDNEY AND URETER: Parapelvic cysts. There is no solid mass, hydronephrosis, nephrolithiasis, hydroureter or ureterolithiasis. AORTA AND VESSELS: Variant circumaortic left renal vein. There is no aneurysm or dissection of the a bdominal aorta. RETROPERITONEUM: No retroperitoneal adenopathy, hemorrhage or mass. BOWEL AND PERITONEAL CAVITY: No bowel obstruction, bowel wall thickening, pericolonic/perienteric inf lammation. No mesenteric adenopathy, free intraperitoneal fluid, or mesenteric/omental inflammation. APPENDIX: Unable to identify the appendix PELVIS: The prostate gland is enlarged. The urinary bladder is distended and normal in appearance. ABDOMINAL WALL: No masses or hernias. BONES: No acute findings. OTHER: No other finding. IMPRESSION: No acute intra-abdominal abnormality. TECHNICAL DOCUMENTATION: JOB ID: [id number] Quality ID # [id number]: Final reports with documentation of one or more dose reduction techniques (e.g., Au tomated exposure control, adjustment of the mA and/or kV according to patient size, use of iterative reconstruction technique) 2010 [employer]- All Rights Reserved Reading location - IP/workstation name: [email or web address]
[2019-03-15 15:16] VITALS: BP 120/65
== END 2019-03-15 15:14 | disposition home or self-care (01) ==
LOC: ER 08:18
DX: M54.5 Low back pain (principal); R10.30 Lower abdominal pain, unspecified; R10.814 Left lower quadrant abdominal tenderness; Z90.49 Acquired absence of other specified parts of digestive tract; Z87.19 Personal history of other diseases of the digestive system
CPT/HCPCS: 99284; 96361; 96374; 36415; 85025; 80053; 81001; 74177; J2270; J7030

== ENCOUNTER 2019-05-08 11:08 | Emergency (ER) | payer OTHER ==
[2019-05-08 11:12] VITALS: BP 130/70
[2019-05-08] MEDS ORDERED: ACETAMINOPHEN 325 MG TABLET PO ONE (11:21)
--- NOTE | 2019-05-08 11:26 | ER Document Report ---
HPI - HPI Time Seen by Provider: 05/08/19 11:16 Pain Level: 2 Context: Patient is a very pleasant 58-year-old male who presents emergency department with a chief complaint of left knee pain. Patient states that his knee pain started about 3 weeks ago. He was visiting [place] and at the airport he felt his medial left knee had a "popping sensation." Patient states that it although it is a "popping sensation," he feels that it is actually feels like his knee is "going to give out." Over the last couple of days, patient states that he feels like it is getting worse. Patient was seen in February for back pain, which ended up being sciatic nerve pain. Patient states that he has not had any problems with that since his previous visit. Patient states that when he pivots, it makes his knee pain worse. - ROS Systems Reviewed and Negative: Yes All other systems reviewed and negative - CONSTITUTIONAL Constitutional: DENIES: Fever, Chills - RESPIRATORY Respiratory: DENIES: Trouble Breathing, Coughing - MUSCULOSKELETAL Musculoskeletal: REPORTS: Extremity pain - Left knee, Swelling - Left knee. DENIES: Back Pain, Neck Pain - DERM Skin Color: Normal Skin Problems: None Past Medical History - Social History Smoking Status: Former Smoker Chew tobacco use (# tins/day): No Frequency of alcohol use: None Drug Abuse: None Family History: CAD, Hypertension Patient has suicidal ideation: No Patient has homicidal ideation: No - Past Medical History Cardiac Medical History: Pulmonary Medical History: Neurological Medical History: Renal/ Medical History: Denies: Hx Benign Prostatic Hyperplasia, Hx End Stage Renal Disease, Hx Kidney Stones, Hx Peritoneal Dialysis GI Medical History: Reports: Hx Diverticulitis. Denies: Hx Crohn's Disease, Hx Gastroesophageal Reflux Disease, Hx Hiatal Hernia, Hx Irritable Bowel, Hx Liver Failure, Hx Pancreatitis, Hx Ulcer Musculoskeletal Medical History: Past Surgical History: Reports: Hx Appendectomy, Hx Inguinal Hernia. Denies: Hx Bowel Surgery, Hx Cholecystectomy, Hx Colostomy, Hx Coronary Artery Bypass Graft, Hx Gastric Bypass Surgery, Hx Herniorrhaphy, Hx Pacemaker, Hx Tonsillect fabrice - Immunizations Hx Diphtheria, Pertussis, Tetanus Vaccination: No Vertical Provider Document - CONSTITUTIONAL Agree With Documented VS: Yes Exam Limitations: No Limitations General Appearance: No Apparent Distress - INFECTION CONTROL TRAVEL OUTSIDE OF THE [place] IN LAST 30 DAYS: No - HEENT HEENT: Atraumatic, Normocephalic, PERRLA - NECK Neck: Normal Inspection - RESPIRATORY Respiratory: Breath Sounds Normal, No Respiratory Distress - CARDIOVASCULAR Cardiovascular: Regular Rate, Regular Rhythm Pulses: Normal: Radial, Posterior tibial, Dorsalis pedis - MUSCULOSKELETAL/EXTREMETIES Musculoskeletal/Extremeties: FROM, Tender - Medial left knee, Edema - Mild to medial left knee - NEURO Level of Consciousness: Awake, Alert, Appropriate Motor/Sensory: No Motor Deficit, No Sensory Deficit - DERM Integumentary: Warm, Dry, No Rash Course - Re-evaluation Re-evalutation: 05/08/19 12:37 X-ray does not show any fracture or dislocation. There are no bone spurs noted. No effusion noted. Dorsalis pedis and posterior tibial pulses 2+. I suspect the patient has a meniscus injury or a medial collateral ligament injury, based off of his physical exam. He does have some mild swelling noted to his medial aspect of his left knee. Patient will be placed in any knee immobilizer, given crutches, and was instructed to rest, apply ice, and apply Voltaren gel. He was advised to stay away from oral NSAIDs due to his history of colon surgery. I also advised him to take Tylenol. Advised him to be evaluated for physical therapy. He is in agreement with this plan. Follow-up precautions were given. Verbal discharge instructions were given to the patient. They verbalized understanding. They are stable for discharge. - Vital Signs Vital signs: Temp Pulse Resp BP Pulse Ox 98.2 F 79 16 130/70 H 98 05/08/19 11:11 05/08/19 11:11 05/08/19 11:11 05/08/19 11:11 05/08/19 11:11 Procedures - Immobilization Left Knee Pre-Proc Neuro Vasc Exam: Normal Immobilizer type: Crutches, Knee immobilizer Performed by: PCT Post-Proc Neuro Vasc Exam: Normal, Unchanged from pre-exam Alignment checked and good: Yes Discharge - Discharge Clinical Impression: Left knee pain Qualifiers: Chronicity: acute Qualified Code(s): M25.562 - Pain in left knee Condition: Stable Disposition: HOME, SELF-CARE Instructions: Use of Crutches ([facility]), Ice & Elevation ([facility]), Knee Immobilizing Splint ([facility]), Oral Narcotic Medication ([facility]) Additional Instructions: You were seen today in the emergency department for left knee pain. At this time, there are no abnormalities on your x-ray. Please continue to take Tylenol 650 mg to 1000 mg every 6 hours as needed for your pain. If you take the Dawson, please please only take 650 mg of Tylenol. Follow-up with orthopedics in regards to this visit. Try to see if you can get physical therapy. Use the crutches. Wear the knee brace as as possible. Rest, apply ice, and elevate your leg. Prescriptions: Diclofenac Sodium/Lidocaine [Lidovix] 1 each MC ASDIR PRN #1 combo..pkg PRN Reason: Referrals: DON SQUIRES PA-C [Primary Care Provider] - Follow up in 3-5 days ANN-MARIE HERRERA MD [ACTIVE STAFF] - Follow up as needed [facility] [Provider Group] - Follow up as needed ANA RAMÍREZ MD [ACTIVE PROVISIONAL STAFF] - Follow up as needed PATRICK VILLATORO JR, DO [ACTIVE PROVISIONAL STAFF] - Follow up as needed
--- NOTE | 2019-05-08 12:18 | RADIOLOGY REPORT (SQ) ---
EXAM DESCRIPTION: KNEE LEFT 4 VIEW COMPLETED DATE/TIME: 05/08/2019 11:30 am REASON FOR STUDY: left knee pain COMPARISON: None. NUMBER OF VIEWS: Four views. TECHNIQUE: AP, lateral, and both oblique radiographic images acquired of the left knee. LIMITATIONS: None. FINDINGS: MINERALIZATION: Normal. BONES: No acute fracture or dislocation. No worrisome bone lesions. JOINT: No effusion. SOFT TISSUES: No soft tissue swelling. No radio-opaque foreign body. OTHER: No other significant finding. IMPRESSION: NEGATIVE STUDY OF THE LEFT KNEE. NO RADIOGRAPHIC EVIDENCE OF ACUTE INJURY. TECHNICAL DOCUMENTATION: JOB ID: [id number] 2010 [employer]- All Rights Reserved Reading location - IP/workstation name: [email or web address]
[2019-05-08] MEDS ORDERED: HYDROCODONE/ACETAMINOPHEN 5-325 MG (6 TAB/ER DISP) PO PRN (12:34)
[2019-05-08] MEDS ORDERED: HYDROCODONE/ACETAMINOPHEN 5-325 MG TABLET PO ONE (12:34)
== END 2019-05-08 13:09 | disposition home or self-care (01) ==
LOC: ER 11:08
DX: M25.562 Pain in left knee (principal); Z87.891 Personal history of nicotine dependence
CPT/HCPCS: 99283